=== PATIENT | female | born 1960 | race African-American/Black ===

== ENCOUNTER 2019-08-04 14:56 | Inpatient (IN) ==
[2019-08-04] MEDS ORDERED: ZOFRAN IV PRN (17:01)
[2019-08-04] MEDS ORDERED: TYLENOL PO PRN (17:01)
[2019-08-04 17:06] LABS: EOS% 2.8 % (0.0-10.0); MCV 84.8 FL (81-99)
[2019-08-04 17:23] LABS: INR 1.23; PROTIME 15.7 Seconds (11.0-16.0)
[2019-08-04 17:27] LABS: POTASSIUM 5.8 mmol/L (3.5-5.1)
[2019-08-04 17:28] LABS: ALBUMIN 3.6 g/dL (3.5-5.0); CALCIUM 9.3 mg/dL (8.8-10.2); CREATININE 2.7 mg/dL (0.5-0.9); PHOSPHORUS 4.2 mg/dL (2.7-4.5); TOTAL BILIRUBIN 0.28 mg/dL (0.20-1.00); TOTAL PROTEIN 7.2 g/dL (6.3-8.3)
--- NOTE | 2019-08-04 17:45 | Diag Imaging Result Doc PS360 ---
EXAM: CHEST-PORTABLE - 08/04/2019 HISTORY: sob TECHNIQUE: Portable chest COMPARISON: 10/26/2018 FINDINGS: There is stable mild cardiomegaly. The lungs appear clear. There is no pleural effusion or pneumothorax identified. IMPRESSION: Stable mild cardiomegaly. No other evidence of acute disease. Electronically signed by Jamison Fair 08/04/2019 5:43 PM
[2019-08-04 18:42] LABS: BASO# 0.03 X1000 (0.0-0.2); BASO% 0.5 % (0.0-0.8); EOS# 0.16 X1000 (0.0-0.7); HEMATOCRIT 32.3 % (37.0-47.0); HEMOGLOBIN 10.2 g/dL (12.0-16.0); LYMPH# 1.47 X1000 (1.2-3.4); LYMPH% 26.1 % (20.5-51.1); MCH 26.8 PG (27-31); MCHC 31.6 g/dL (33-37); MONO# 0.52 X1000 (0.11-0.59); MONO% 9.2 % (1.7-9.3); MPV 11.9 FL (7.4-10.4); NEUT# 3.45 X1000 (1.4-6.5); NEUT% 61.4 % (42.2-75.2); PLT 163 X1000 (130-400); RBC 3.81 XMIL (4.2-5.4); RDW 13.1 % (11.5-14.5); WBC 5.63 X1000 (4.8-10.8)
[2019-08-04 18:55] LABS: HEMOGLOBIN A1C 9.8 % (4.8-6.0)
[2019-08-04] MEDS ORDERED: KAYEXALATE PO ONE (19:15)
--- NOTE | 2019-08-04 19:30 | EKG Report ---
Test Performed on : 08/04/2019 6:45:17 PM Test Reason : baseline ekg on admit; ckd Blood Pressure : / mmHG Vent. Rate : 075 BPM Atrial Rate : 075 BPM P-R Int : 168 ms QRS Dur : 070 ms QT Int : 390 ms P-R-T Axes : 054 032 031 degrees QTc Int : 435 ms Normal sinus rhythm. Normal ECG When compared with ECG of 04-DEC-2018 19:44, No significant change was found Confirmed by Anabela MOORE, Andrew Santillan ([id number]) on 08/05/2019 8:22:22 AM
--- NOTE | 2019-08-04 20:22 | HISTORY AND PHYSICAL ---
PRIMARY CARE PROVIDER: Dr. Rodriguez. PRIMARY JIG GRINDER: Dr. Thompson. PRIMARY GENERAL SURGEON: For chronic lower extremity wounds is Dr. Chandrakant Garcia. CHIEF COMPLAINT: Actually, a direct admit secondary to worsening fluid volume overload and worsening renal failure. HISTORY OF PRESENT ILLNESS: Ms. Fannie Gonzalez is a 58-year-old, - Faroese female, with a medical history of insulin-dependent diabetes mellitus type 2, peripheral vascular disease, CKD stage 5, hypertension, neurogenic bladder with suprapubic catheter, heart failure, who is here after attempts of diuresing her by Dr. Thompson and team. She was on 80 of Lasix in the morning, 40 at night, along with every other day metolazone with continued increasing fluid weight gain along with uremia. She is going to be admitted for high-dose Lasix to see if she can be diuresed well enough. If unable to get diuresed well enough, she could possibly may need dialysis. Dr. Thompson will be following. PAST MEDICAL HISTORY: 1. Diabetes mellitus type 2 with insulin dependence, uncontrolled with a hemoglobin A1c of 9.8. 2. Peripheral vascular disease with frequent lower extremity wounds. 3. Chronic kidney disease stage 5. 4. Hypertension. 5. Neurogenic bladder with suprapubic catheter that gets changed every 30 days. 6. Congestive heart failure. 7. Hyperlipidemia. SURGICAL HISTORY: 1. Right 5th toe amputation 1 year ago, June 2018. 2. Rotator cuff repair. 3. Hysterectomy. 4. Skin graft in 2018, likely secondary to ulcerations of the leg, and that was on the right leg. 5. History of PICC line placement and removal. SOCIAL HISTORY: Denies tobacco, alcohol, or illicit drug use. She lives at home with her son. Uses a walker and cane to get around a little bit. Out of balance when she does walk. FAMILY HISTORY: Mother's side of the family with diabetes, [place]. Father's side of the family with prostate cancer, peripheral vascular disease, also [place]. ALLERGIES: Ciprofloxacin, propoxyphene napsylate, latex, tomato, egg, and milk. HOME MEDICATIONS: Not verified. REVIEW OF SYSTEMS: A 14-point review of systems are complete and all were negative, except for those mentioned above in HPI. PHYSICAL EXAMINATION: VITAL SIGNS: Temperature 98.9 degrees, heart rate 66, respiratory rate 20, blood pressure 149/69, O2 saturation 98% on room air. She is 5 feet 2 inches tall, 265 pounds, with a BMI 48.5, mostly all fluid, a lot of fluid. GENERAL: Ms. Fannie Gonzalez is a 58-year-old, -Faroese female. She is in no acute distress. She is able to answer questions appropriately. HEENT: Atraumatic, normocephalic. Pupils equal, round, reactive to light. Extraocular movements intact. Mucous membranes are moist. NECK: Trachea midline. CARDIOVASCULAR: S1, S2. Regular rate and rhythm. No rubs, gallops, murmurs. Trace lower extremity edema. Negative JVD or carotid bruits. PULMONARY: Clear to auscultation. Bilateral breath sounds. No accessory muscle use or work of breathing noted. GASTROINTESTINAL: Soft, nontender, nondistended. Positive bowel sounds x4. Suprapubic catheter in place. No signs or symptoms of infection. NEUROLOGIC: A O x3. Follows commands. Decreased sensory in the lower extremities. EXTREMITIES: Moves all extremities equally with generalized weakness. Decreased range of motion. Balance is off with walking. SKIN: She has multiple stages of healing in the lower extremities likely secondary to her peripheral vascular disease. She has had a history of skin grafting on the right. She has a bullous on the right maurice that has not opened. She has the right great toe, there is a little ulceration that looks like it is appearing. The skin is very taut and shiny. LABORATORY DATA: White blood cells 5000, hemoglobin 10, hematocrit 32, platelet count 163,000. INR is 1.23, PTT is 36.7. Sodium 136, potassium 5.8, BUN 75, creatinine is 2.7, glucose 183. Hemoglobin A1c is 9.8. Calcium 9.3, phosphorus 4.2, bilirubin 0.28, AST 12, ALT 9. ProBNP 507. Albumin is 3.6. IMAGING: Chest x-ray: Stable mild cardiomegaly. No acute disease. ASSESSMENT AND PLAN: 1. Chronic kidney disease stage 5 with hypervolemia, or fluid volume overload, along with uremia. She is here for high-dose diuretic therapy. She will be on Lasix 100 mg IV twice a day and Dr. Thompson will be following. Still pending some of her labs, but it looks like her creatinine has actually improved from 4.1 on the 07/24/2019, down to 2.7 on 08/04/2019, today. 2. Hyperkalemia. Will probably give a dose of Kayexalate and will check an EKG. 3. Uncontrolled diabetes mellitus type 2. Currently, blood glucose level is 183. She has a hemoglobin A1c of 9.8. Diabetic renal diet, sliding scale insulin, patterned blood glucoses. 4. Elevated alkaline phosphatase. It looks like we are going to do a hepatitis panel for that. 5. Chronic anemia. Stable. Hemoglobin is 10 and it looks like about 2 months ago it was 11. 6. Peripheral vascular disease. It looks like an ulcer may be starting to develop on the right great toe. There is a bullous area on the right maurice. She does see Dr. Chandrakant Garcia. We could consider reconsulting him if things worsen before she gets discharged. 7. History of neurogenic bladder with suprapubic catheter. Routine care on that. 8. Hypertension. Home medications, once they are verified, we can resume. 9. Deep venous thrombosis prophylaxis. Heparin 5000 units subcutaneously twice a day. Dictated by ABIGAIL Beckman for Timur Cole MD cc: ABIGAIL Beckman MD Hiteshri S. Bhavsar, MD Reginald D. Gladish, MD I agree with most components of history, physical, assessment and plan. A separate addendum has been dictated . [facility]
--- NOTE | 2019-08-04 20:24 | HISTORY AND PHYSICAL ---
ADDENDUM: I agree with most components of history, physical, assessment and plan. In brief, Ms. Gonzalez is a 58-year-old lady with past medical history of morbid obesity, neurogenic bladder status post suprapubic catheter, peripheral arterial disease, chronic kidney disease stage 4 to stage 5, who had routine lab draws done at sustainability manager's office where she was found to have a creatinine in excess of 4 so she was advised to come to the hospital. Apparently, patient has also been feeling more drowsy and confused recently than before. At the time of my evaluation, however, patient is eating her dinner. She denies any chest pain, shortness of breath. She states she has been gaining weight and has noticed significant edema of both lower extremities as well as abdomen. She also feels very sleepy and confused; however, past medical history is inconsistent. The patient's family is at bedside. She denies any chest pain or shortness of breath. VITAL SIGNS: She is afebrile. Temperature 98.9 degrees, pulse is 80, respiratory 20, blood pressure 150/70, saturating 98% on room air. PHYSICAL EXAMINATION: GENERAL: Morbidly obese, not in acute distress. HEENT: Oral cavity is moist. LUNGS: Air entry bilaterally equal. No wheeze, rhonchi, or crackles. CARDIOVASCULAR: S1, S2 normal. Systolic murmur best heard in left second intercostal space. No rub or gallop. ABDOMEN: Was obese, soft, nontender. Bilateral lower extremity edema extending up to thigh level. GENITOURINARY: She has a hypogastric region suprapubic catheter draining clear urine. The site appears clean. INTEGUMENTARY: She also has a right 5th toe amputation. Right great toe has an abrasion which is slightly bleeding, poor nail health. LABORATORY DATA: Suggestive of normocytic anemia, normal platelet count, hyperkalemia, chronic kidney disease stage 4. No blood cultures were collected. IMAGING: Chest x-ray has cardiomegaly without evidence of acute disease. ASSESSMENT AND PLAN: 1. Volume overload due to chronic kidney disease stage 4 and progression of it. 2. History of insulin-dependent diabetes mellitus. 3. History of neurogenic bladder status post suprapubic catheter. 4. History of peripheral artery disease, obstructive sleep apnea, hyperlipidemia. PLAN: Start patient on intravenous diuresis. Resume most of her home medications. Plan of care discussed with her. Her questions have been answered. cc: Timur Cole MD MTDD
[2019-08-04] MEDS ORDERED: PRAVACHOL PO SCH (21:00)
[2019-08-04 21:19] LABS: URINE SOURCE CATH
[2019-08-04 21:29] LABS: BILIRUBIN URINE NEGATIVE (NEGATIVE); BLOOD URINE MODERATE (NEGATIVE); COLOR STRAW; GLUCOSE URINE NEGATIVE (NEGATIVE); KETONE URINE NEGATIVE (NEGATIVE); LEUKOCYTES URINE LARGE (NEGATIVE); NITRITE URINE POSITIVE (NEGATIVE); PROTEIN URINE 100 mg/dL (NEGATIVE); SP GRAVITY URINE 1.013; TURBIDITY URINE HAZY (CLEAR); UROBILINOGEN URINE NORMAL (NORMAL)
[2019-08-04 21:30] LABS: UR EPITHELIAL CELLS <10 /HPF (<10); URINE BACTERIA 4+ /HPF; URINE RBC <10 /HPF (<10); URINE WBC TNTC /HPF (<10)
[2019-08-04] MEDS: HEPARIN SUBQ SCH (22:35)
[2019-08-04] MEDS: LASIX IV SCH (22:35)
[2019-08-04] MEDS: NEURONTIN PO SCH (22:36)
[2019-08-04] MEDS: HUMULIN R SUBQ SCH (22:47)
[2019-08-05] MEDS: HUMULIN R SUBQ SCH ×4 (06:08→21:14)
[2019-08-05 06:37] LABS: BASO# 0.02 X1000 (0.0-0.2); BASO% 0.3 % (0.0-0.8); EOS# 0.23 X1000 (0.0-0.7); HEMATOCRIT 33.1 % (37.0-47.0); HEMOGLOBIN 10.4 g/dL (12.0-16.0); LYMPH# 1.35 X1000 (1.2-3.4); LYMPH% 23.4 % (20.5-51.1); MCH 26.7 PG (27-31); MCHC 31.4 g/dL (33-37); MCV 85.1 FL (81-99); MONO# 0.58 X1000 (0.11-0.59); NEUT% 62.3 % (42.2-75.2); PLT 163 X1000 (130-400); RBC 3.89 XMIL (4.2-5.4); WBC 5.78 X1000 (4.8-10.8)
[2019-08-05 06:41] LABS: INR 1.18; PROTIME 15.1 Seconds (11.0-16.0)
[2019-08-05 06:42] LABS: PTT 28.2 Seconds (22.3-41.8)
[2019-08-05] MEDS ORDERED: PRILOSEC PO SCH (07:00)
[2019-08-05 07:08] LABS: ALB/GLOB RATIO 1.1; CALCIUM 8.8 mg/dL (8.8-10.2); CREATININE 3.1 mg/dL (0.5-0.9); MAGNESIUM 2.2 mg/dL (1.5-2.7); POTASSIUM 5.9 mmol/L (3.5-5.1); TOTAL BILIRUBIN 0.24 mg/dL (0.20-1.00); TOTAL PROTEIN 7.5 g/dL (6.3-8.3)
[2019-08-05] MEDS: ASPIRIN PO SCH (09:24)
[2019-08-05] MEDS: HEPARIN SUBQ SCH ×2 (09:24→21:13)
[2019-08-05] MEDS: LASIX IV SCH ×2 (09:24→21:13)
[2019-08-05] MEDS: NEURONTIN PO SCH ×3 (09:24→21:12)
[2019-08-05] MEDS: COZAAR PO SCH (09:24)
[2019-08-05] MEDS ORDERED: ATARAX PO ONE (10:01)
--- NOTE | 2019-08-05 12:07 | NEPHROLOGY CONSULTATION ---
DATE: 08/05/2019 REASON FOR ADMISSION: Uremia, worsening fluid volume. REASON FOR CONSULT: Uremia, worsening fluid volume. HISTORY OF PRESENT ILLNESS: This is a 58-year-old female known to our service for CKD 5, who was seen in the office. She had been having issues with fluid volume management and noted to have significant uremic symptoms. She was admitted for further workup and treatment in an effort to manage her fluid volume with high-dose Lasix. Anticipate the patient may require dialysis for management. Her creatinine in the office was greater than 4, however, in the hospital her creatinine on admission was 2.7. Today she is awake and alert. She continues to have morning sickness and some weakness along with swelling. PAST MEDICAL HISTORY: CKD 5. Diabetes. Peripheral vascular disease. Hypertension. Neurogenic bladder. Congestive heart failure. Hyperlipidemia. PATS SURGICAL HISTORY: Fifth toe amputation on the right. Rotator cuff repair. Hysterectomy. Skin graft in 2018. History of PICC line. ALLERGIES: Ciprofloxacin, propoxyphene napsylate, latex, tomato, egg, and milk. HOME MEDICATIONS: Please see chart for list. FAMILY HISTORY: Noncontributory. SOCIAL: No ETOH, tobacco or illicit drug use. REVIEW OF SYSTEMS: Pertinent positives noted above in the HPI. PHYSICAL EXAMINATION: Vital Signs: Temperature 98.1 degrees, pulse 83, respiratory rate 15, blood pressure 145/54. Intake 900 mL. Output 2.3 liters. General: This is a middle-aged woman who does not appear in distress. HEENT: Normocephalic, atraumatic. JACKIE. Neck: Supple. Positive JVD. Cardiovascular: Regular rate and rhythm with a gallop. Pulmonary: She is clear. Abdomen: Soft. Positive bowel sounds. : Indwelling Patel. Extremities: She is able to move all extremities. She has 1+ edema. Integumentary: Skin is warm and dry. Neurologic: Grossly intact. LAB DATA: Sodium is 139, potassium 5.9, CO2 23, BUN 73, creatinine 3.1. ASSESSMENT AND PLAN: 1. Fluid volume overload. 2. Hyperkalemia. We are in agreement with medical treatment of her hyperkalemia and the chronic kidney disease, stage 5, with uremia, hypovolemia. We will start with high- dose Lasix today and observe. The patient's creatinine today is significantly improved from her outpatient labs. 3. Electrolytes, acid-base balance. These are acceptable. 4. Anemia. Hemoglobin is in targeted range. Dictated by ABIGAIL Ordonez for Agapito Thompson MD Face to face encounter, data reviewed, discussed with Ashwin Sharma on 08/05/19. I agree with the above assessment and plan of care. cc: Agapito Thompson MD [facility]
[2019-08-05 13:06] LABS: HEPATITIS PROFILE ACUTE SEE COMMENTS
[2019-08-05] MEDS ORDERED: NEURONTIN PO ONE (15:07)
[2019-08-05] MEDS ORDERED: BENADRYL IV ONE (15:26)
[2019-08-05] MEDS ORDERED: HYDROCORTISONE 1% OINTMENT TOP ONE (19:09)
[2019-08-05] MEDS ORDERED: ZYRTEC PO ONE (19:09)
[2019-08-05] MEDS ORDERED: HUMULIN 70/30 SUBQ ONE (19:15)
--- NOTE | 2019-08-05 20:08 | PROGRESS NOTE ---
DATE: 08/05/2019 INTERVAL HISTORY: No acute events overnight. She had an episode of intense itching today and she required an additional dose of hydroxyzine as well as IV Benadryl. She is also complaining of some itching in the nose and mouth. She wanted me to call the surgeon doctor. She was also supposed to get echocardiogram, which has not been done outpatient yet. She denies any new complaints. We discussed about continuing the Lasix. I answered all of her questions. VITALS: Temperature 97.6 degrees, pulse 74, respiratory rate 18, blood pressure 150/60, saturating 97% room air. PHYSICAL EXAMINATION: Morbidly obese, not in any acute distress. Oral cavity is moist. Air entry bilaterally equal. No wheeze, rhonchi, or crackles. S1, S2 normal. Systolic murmur best heard in the left 2nd intercostal space.Abdomen: Obese, soft, nontender. Suprapubic catheter with some mucoid discharge in hypogastric region. She has right 5th toe amputation. Right great toe has abrasion with ulcer with poor nail health. She has ascites and bilateral lower extremity edema. LABORATORY: Suggestive of no leukocytosis. Normocytic anemia. Normal platelet count. She does have hyperkalemia, elevated BUN and creatinine, hyperglycemia. Alkaline phosphatase is elevated. MICROBIOLOGY: Urine culture is growing gram-negative rods. However, she does not have any symptoms. This could just be colonization, so it would not be treated. ASSESSMENT AND PLAN: 1. Volume overload due to chronic kidney disease stage 4 and now progression. I will continue intravenous Lasix and add home oral metolazone. Nephrology team is on board. I will follow up with potassium level to see if she needs to be treated. Meanwhile, I will also give her albuterol nebulization. 2. History of insulin-dependent diabetes mellitus with hyperglycemia. Resume her home insulin regimen. 3. History of neurogenic bladder, status post suprapubic catheter. I will not treat urine bacteria since she does not have WBC count and is not symptomatic. 4. History of peripheral artery disease, obstructive sleep apnea, and hyperlipidemia. I will continue her home medication of gabapentin. 5. Others. Continue pravastatin for hyperlipidemia with aspirin; heparin for DVT prophylaxis subcutaneously; hydroxyzine for allergies and itching; losartan and metoprolol for essential hypertension; omeprazole for gastroesophageal reflux disease. DISPOSITION: I will continue to monitor the patient inside the hospital. Plan of care discussed with her. All of questions have been answered. She does have hypervolemia requiring IV diuresis. cc: Timur Cole MD MTDD
[2019-08-05] MEDS: PRAVACHOL PO SCH (21:13)
[2019-08-05] MEDS: ATARAX PO SCH (21:13)
[2019-08-06 05:24] LABS: ALBUMIN 4.1 g/dL (3.5-5.0); CALCIUM 9.5 mg/dL (8.8-10.2); CREATININE 2.8 mg/dL (0.5-0.9); POTASSIUM 4.2 mmol/L (3.5-5.1)
[2019-08-06] MEDS: HUMULIN R SUBQ SCH ×4 (06:21→21:27)
[2019-08-06] MEDS: VITAMIN B-12 PO SCH (08:21)
[2019-08-06] MEDS: ASPIRIN PO SCH (08:21)
[2019-08-06] MEDS: NEURONTIN PO SCH ×3 (08:21→21:26)
[2019-08-06] MEDS: TOPROL XL PO SCH (08:21)
[2019-08-06] MEDS: PRILOSEC PO SCH (08:21)
[2019-08-06] MEDS: HEPARIN SUBQ SCH ×2 (08:21→21:26)
[2019-08-06] MEDS: LASIX IV SCH ×2 (08:21→21:27)
[2019-08-06] MEDS: COZAAR PO SCH (08:22)
[2019-08-06] MEDS: HUMULIN 70/30 SUBQ SCH (08:22)
--- NOTE | 2019-08-06 09:43 | PROGRESS NOTE ---
DATE: 08/06/2019 INTERVAL HISTORY: No acute events overnight. Her itching had stopped yesterday after increasing her gabapentin and hydroxyzine dose. She is denying new complaints. She did have a low oxygen saturation. VITALS: Temperature 98.3 degrees, pulse 77, respiratory rate 15, blood pressure 140/63, saturating anywhere between 88 to 100 percent on 2 L nasal cannula. PHYSICAL EXAMINATION: Morbidly obese. Not in any acute distress. Oral cavity is moist. Lungs: Air entry bilaterally equal. No wheeze or rhonchi. Inspiratory crackles, bilateral infrascapular region. Cardiovascular: S1, S2 normal. Systolic murmur best heard in second intercostal space. Abdomen: Obese, soft, nontender. Suprapubic catheter is in place. She has a right 5th toe amputation. Right great toe has abrasion with ulcer and poor nail health. She has ascites and bilateral lower extremity edema. She is alert and oriented x3. LABS: No CBC today. BMP suggestive of resolution of hyperkalemia. She does have persistently elevated BUN and creatinine. Blood sugars are within acceptable range. MICROBIOLOGY: Urine culture preliminary is growing gram-negative aleksandar. ASSESSMENT AND PLAN: 1. Volume overload due to chronic kidney disease stage 4 and now progression. Continue intravenous Lasix or oral metolazone. Nephrology team is on board. 2. History of insulin-dependent diabetes mellitus with hyperglycemia. Continue home insulin regimen. 3. Diabetic foot wound of right great toe: Pending surgical recommendations. 3. History of neurogenic bladder, status post suprapubic catheter which now is growing gram- negative bacteria. I will consult urology to see if her suprapubic catheter and gram-negative bacteria needs to be treated as necessary. 4. History of peripheral arterial disease, obstructive sleep apnea, and hyperlipidemia. Continue home gabapentin. She is on as needed oxygen at home, which I will continue. She has not been compliant with home CPAP. 5. Others. Continue pravastatin for hyperlipidemia with aspirin; heparin for deep venous thrombosis prophylaxis; hydroxyzine for allergies and itching; losartan and metoprolol for essential hypertension; omeprazole for chronic gastroesophageal reflux disease. 6. Disposition. Continue to monitor patient inside the hospital for need for intravenous diuresis. Plan of care discussed with her. All her questions have been answered. cc: MD LANA Pastor
--- NOTE | 2019-08-06 10:55 | Diag Imaging Result Doc PS360 ---
EXAM: CHEST-2 VIEWS 08/06/2019 HISTORY: cough, sob TECHNIQUE: PA and lateral chest COMMENT: There is cardiomegaly with left ventricular enlargement. The lungs are better expanded than they were on 08/04/2019. Otherwise are has been no significant change. IMPRESSION: Cardiomegaly. Electronically signed by Bran Briones 08/06/2019 10:51 AM
--- NOTE | 2019-08-06 11:59 | PROGRESS NOTE ---
DATE: 08/06/2019 INTERVAL HISTORY: Her itching had stopped yesterday, and she otherwise did okay. The chest x-ray did not detect any acute pathology. I will continue to monitor the patient inside the hospital. cc: Timur Cole MD
--- NOTE | 2019-08-06 12:08 | NEPHROLOGY PROGRESS NOTE ---
DATE: 08/06/2019 SUBJECTIVE: She states she did feel as well this morning. Some nausea. She complained of smothering at night. OBJECTIVE: Vital Signs: Blood pressure 144/61, heart rate 77, respirations 15, afebrile. General: No acute distress. Skin is warm and dry. Conjunctivae are pale. Oropharynx is moist. Neck: Neck veins are not visible. Heart: Regular but distant. Lungs: Equal. No crackles. Abdomen: Obese, soft, nontender. Bowel sounds present. Extremities: With 2+ edema. No clubbing or cyanosis. IMPRESSION: 1. Shortness of breath. She has been in negative fluid balance. Net negative approximately 5 L. We will continue her Lasix and check a chest x-ray again today. 2. Chronic kidney disease. Her creatinine has actually better than her baseline so I am not planning to start dialysis at this time. We will continue to re-evaluate that decision. 3. Electrolytes/acid base/anemia all in target. 4. Blood pressure in target. cc: Agapito Thompson MD
[2019-08-06] MEDS ORDERED: HUMULIN N SUBQ SCH ×2 (17:00→20:00)
[2019-08-06] MEDS ORDERED: ROCEPHIN 1 GM in NS 50 ML IV SCH (18:00)
[2019-08-06] MEDS: ATARAX PO SCH (21:26)
[2019-08-06] MEDS: PRAVACHOL PO SCH (21:26)
--- NOTE | 2019-08-06 21:33 | GENERAL SURGERY CONSULTATION ---
DATE: 08/06/2019 CONSULTING PHYSICIAN: Dr. Hawthorne, hospitalist. CHIEF COMPLAINT: Right foot wound. HISTORY OF PRESENT ILLNESS: This is a 58-year-old female known to me with chronic lower extremity wounds. She presented with worsening renal function, volume overload, and has been treated medically for this. She was noted to have a new ulceration of the right 1st toe. She has been afebrile. MEDICAL HISTORY: 1. Hypertension. 2. Chronic edema. 3. Congestive heart failure. 4. Chronic wounds. 5. Diabetes. 6. Chronic kidney disease. SOCIAL HISTORY: She does have a history of smoking; none current. SURGICAL HISTORY: No vascular procedures. FAMILY HISTORY: Reviewed and noncontributory. REVIEW OF SYSTEMS: A 10 point review of systems was reviewed and negative. PHYSICAL EXAMINATION: Vital Signs: She is afebrile, pulse 65, blood pressure 135/79. General: She is alert. HEENT: No scleral icterus or cervical mass. Cardiovascular: Normal rate. Pulmonary: She is on nasal cannula O2 with no increased work of breathing. Abdomen: Soft, nontender. Integument: Warm, dry. Psychiatric: Appropriate mood and affect. Neurologic: No gross deficits. Lymphatic: No cervical adenopathy. Peripheral Vascular: Chronic venous insufficiency changes to bilateral lower extremities, worse on the right. She has some superficial ulcerations of the right lateral calf and a superficial ulceration of the right 1st toe. Amputation of the right 5th toe is noted, well healed. LABS: Reviewed. Normal white count. Creatinine is 2.8. ASSESSMENT AND PLAN: 1. This is a 58-year-old female admitted with volume overload. She has chronic wounds. She has a relatively clean ulcer at the distal aspect of her 1st toe. It appears traumatic. I have seen this in my office as well and it has overall been stable. We will get an x-ray to rule out underlying osteomyelitis, and otherwise continue local wound care. 2. Diabetes, being managed by the hospitalist. 3. Chronic kidney disease, being managed by the hospitalist. cc: Scott Garcia MD
[2019-08-07] MEDS: HUMULIN R SUBQ SCH ×2 (06:03→15:39)
[2019-08-07] MEDS ORDERED: INSULIN PEN NEEDLES ONE (08:17)
[2019-08-07] MEDS ORDERED: ZAROXOLYN PO SCH (09:00)
[2019-08-07] MEDS: LASIX IV SCH (09:00)
[2019-08-07] MEDS: VITAMIN B-12 PO SCH (09:00)
[2019-08-07] MEDS: ASPIRIN PO SCH (09:00)
[2019-08-07] MEDS: HUMULIN 70/30 SUBQ SCH (09:01)
[2019-08-07] MEDS: NEURONTIN PO SCH ×2 (09:01→15:13)
[2019-08-07] MEDS: PRILOSEC PO SCH (09:01)
[2019-08-07] MEDS: TOPROL XL PO SCH (09:01)
[2019-08-07] MEDS: HEPARIN SUBQ SCH (09:01)
[2019-08-07] MEDS: COZAAR PO SCH (09:01)
[2019-08-07 09:13] LABS: ALBUMIN 4.3 g/dL (3.5-5.0); CALCIUM 9.1 mg/dL (8.8-10.2); CREATININE 3.3 mg/dL (0.5-0.9); PHOSPHORUS 4.9 mg/dL (2.7-4.5); POTASSIUM 3.8 mmol/L (3.5-5.1)
[2019-08-07 11:50] VITALS: BP 137/60
--- NOTE | 2019-08-07 13:12 | ECHO REPORT ---
ORDER DATE: 08/07/2019 INDICATIONS: Fluid overload. FINDINGS: 1. The right atrium appears normal in size. 2. Mild tricuspid regurgitation. RV systolic pressure of 28. 3. Normal RV size and systolic function. 4. No significant pulmonic insufficiency. 5. Mild left atrial enlargement with a dimension of 4.4 cm. 6. No mitral valve prolapse. Mild mitral regurgitation. No evidence of mitral stenosis. 7. Normal LV size, end-diastolic dimension of 4.1 cm. There is no clear evidence of left ventricular hypertrophy on this study. 8. Normal LV systolic function. Estimated EF of 55% to 60% percent with normal wall motion identified. This is a difficult 2 dimensional study given the patient is 5 foot 2 and weighs 252 pounds. 9. Aortic valve opens well. It is trileaflet. There is no evidence of stenosis or insufficiency. 10. Aorta appears normal on visualized segments. 11. There is no pericardial effusion identified. 12. Patient has E to A reversal suggesting a grade 1 diastolic dysfunction. cc: MD Timur Martin MD
[2019-08-07] MEDS ORDERED: ROCEPHIN 1 GM in NS 50 ML IV ONE (13:35)
--- NOTE | 2019-08-07 14:36 | CONSULTATION ---
DATE OF CONSULTATION: 08/07/2019 ATTENDING AND REFERRING PHYSICIAN: Hospitalist. CHIEF COMPLAINT: Kidney failure. HISTORY OF PRESENT ILLNESS: This 58-year-old female has a long history of poorly controlled diabetes. This has resulted in a neurogenic bladder. She had a suprapubic tube placed several years ago. She was previously on clean intermittent catheterization but states she got to where she could not do that. Her last bladder evaluation was in December 2018. At cystoscopic exam there were no abnormalities in the bladder. Her bilateral retrograde ureteral pyelograms were normal. Her suprapubic tube was in good position and easily changed. Her most recent suprapubic tube change was less than 2 weeks ago. The patient denies any bladder problems at this time. She states that over the last several weeks she has had increased sediment in the urine. PAST MEDICAL HISTORY: Severe diabetes, gastroesophageal reflux disease, hypertension, congestive heart failure, elevated cholesterol, peripheral vascular disease, with recurrent wounds. CURRENT MEDICATIONS: Documented on the chart. PAST SURGICAL HISTORY: 1. Cystoscopic exam with bilateral retrograde ureteral pyelograms as noted in the HPI. 2. Placement of a suprapubic tube. 3. Hysterectomy. 4. Multiple treatments of lower extremity wounds. 5. Right 5th toe amputation. 6. Rotator cuff repair. SOCIAL HISTORY: No tobacco use for several years. She denies alcohol use. She uses a walker to ambulate. ALLERGIES: She is allergic to Cipro, latex and different foods. PHYSICAL EXAMINATION: General: An obese, age apparent, normally developed, black female, oriented in all ways and cooperative. HEENT: Normal for age. Lungs: Clear, but distant breath sounds. Cardiovascular: Regular rate and rhythm. Abdomen: Obese with large pannus. Soft suprapubic tube in place draining somewhat clear urine. Genitourinary: Normal external female. Pelvic exam was not performed. Extremities: No cyanosis or clubbing. There was +2 edema of the lower extremities. She does have some wounds that are healing bilaterally, and some well healed scars. Neurologic: No focal deficits. LABORATORY EVALUATION: White count of 5.78, hemoglobin 10.4, hematocrit of 33.1 and platelets are 163,000. Serum electrolytes are normal. BUN 74, creatinine 2.8. Her fingerstick glucoses have never been in the normal range and have gone up from 125 to 330. Urine culture grew Serratia marcescens that is sensitive to all antibiotics except 1st generation cephalosporins and nitrofurantoin. She is currently on ceftriaxone. IMPRESSION and Recommendation: 1. Multiple medical problems with increased renal insufficiency and congestive heart failure. 2. Neurogenic bladder with indwelling suprapubic tube that is draining well. 3. The bacteria that is growing has probably colonized the bladder but would recommend continuing IV Rocephin for several more days. 4. 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 5. Change suprapubic tube as scheduled in 2 weeks. Thank you for this consultation. cc: Romero Calderon MD [facility]
--- NOTE | 2019-08-07 22:32 | NEPHROLOGY PROGRESS NOTE ---
DATE: 08/07/2019 SUBJECTIVE: Ms Gonzalez is sitting up reasonably comfortable, on room air. She still is having some difficulty with nausea. No vomiting. Shortness of breath is minimal. OBJECTIVE: Vital Signs: Blood pressure 137/60, heart rate 70, respirations 16, afebrile. Generally: No acute distress. Skin: Warm and dry. Neck: Neck veins are not distended. Heart: Regular. Lungs: Equal. Abdomen: Benign. Extremities: 2+ edema. No clubbing or cyanosis. IMPRESSION: 1. Chronic kidney disease stage 4 to 5. Creatinine is still better than it was as an outpatient. It is not clear to me whether her nausea is related to uremia. We will focus on symptom management and we will see her in the office and perform 24-hour urine. Further decision- making regarding renal replacement therapy at that time. cc: Agapito Thompson MD
[2019-08-08] MEDS ORDERED: LEVAQUIN PO SCH (09:00)
--- NOTE | 2019-08-08 11:05 | DISCHARGE SUMMARY ---
ADMISSION DATE: 08/04/2019 DISCHARGE DATE: 08/07/2019 DISCHARGE DISPOSITION: Home with family. DISCHARGE CONDITION: Hemodynamically stable. Alert, oriented. Breathing well on room air and negative 6.3 liters since admission. DISCHARGE DIAGNOSES: 1. Volume overload due to chronic kidney disease stage IV and its progression. 2. Intermittent episodes of drowsiness, confusion due to a combination of sleep apnea, use of high dose of gabapentin, and uremia. 3. Insulin-dependent diabetes mellitus type 2 with hyperglycemia. 4. Diabetic foot wound of right great toe. 5. Serratia urinary tract infection complicated, associated with suprapubic catheter. 6. Hyperkalemia OTHER DIAGNOSES: 1. History of morbid obesity. 2. History of insulin-dependent diabetes mellitus type 2. 3. History of neurogenic bladder, status post suprapubic catheter. 4. History of peripheral artery disease. 5. History of obstructive sleep apnea, not compliant with CPAP. 6. Hyperlipidemia. 7. Chronic pain. 8. Essential hypertension. 9. Chronic gastroesophageal reflux disease. DISCHARGE MEDICATIONS: Pravastatin 40 mg at nighttime, hydroxyzine 50 mg at nighttime, vitamin B 12 500 mcg daily, losartan 100 mg daily, furosemide 40 mg t.i.d., insulin 70/30 120 units in the morning time and 110 units in the evening time, metoprolol (Lopressor) 200 mg daily, metolazone 5 mg every other day, omeprazole 40 mg daily, aspirin 325 mg daily, levofloxacin 750 mg every 48 hours 4 tablets have been prescribed for complicated UTI associated with suprapubic catheter by Prieto, gabapentin 300 mg t.i.d.; her dose was decreased from 600 mg t.i.d. CONSULTATIONS DURING HOSPITAL ADMISSION: 1. Nephrology, Dr. Thompson. 2. General Surgery, Dr. Garcia. VITALS: At the time of discharge, temperature 97.4 degrees, pulse 70, respiratory rate 16, blood pressure 137/60, saturating 93% on room air. PHYSICAL EXAMINATION: General: Morbidly obese, not in acute distress. Oral cavity: Moist. Lungs: Air entry bilaterally equal. No wheeze, rhonchi, crackles. Heart: S1, S2 normal. No murmur, rub, or gallop. Abdomen: Soft, nontender, morbidly obese. Extremities: She has bilateral lower extremity edema. She has a right 5th toe amputation, for which local wound is recommended. SIGNIFICANT IMAGING DURING HOSPITAL ADMISSION: Chest x-ray on the 04 of August had stable mild cardiomegaly without any evidence of acute disease. Chest x-ray on the 06 of August had cardiomegaly. HOSPITAL COURSE SUMMARY: Ms. Gonzalez is a 58-year-old lady with past medical history of diabetic nephropathy and chronic kidney disease stage IV, who had seen Dr. Thompson in his office where she was found to be becoming drowsy, confused. It was thought to be related to uremia, so she was advised to come to the hospital. Also, her outpatient creatinine was found to be more than 4. However, when she came to the hospital, her repeat creatinine performed on admission was 2.7. In any case, she had significant volume overload, so she was admitted for intravenous diuresis. She was started on furosemide 40 mg IV every 12 hours, following which she started diuresing better. It was also thought that her sleepiness was a combination of sleep apnea, not being compliant with CPAP, high dose of gabapentin and had oxygen use. In any case, with IV diuresis her clinical condition improved. Urine culture from the suprapubic catheter was growing Serratia marcescens which was sensitive to levofloxacin. At the time of discharge, she was given a prescription of levofloxacin. Her Lasix dose was increased to 60 mg t.i.d. at the time of her discharge. She was advised to follow up with outpatient provider and discuss about further management and decreasing her pain medication dose. TIME SPENT: More than 30 minutes were spent in discharging this patient. All of her questions at the time of discharge were answered. Surgical team was also consulted for the right great toe, who recommended local wound care. Although an x-ray was recommended, it was not ordered, so I advised the patient to get an outpatient x-ray. cc: MD LANA Pastor
== END 2019-08-07 15:41 | disposition home health service (06) | DRG 641 ==
LOC: DIRADM 14:56 → SUATTDRO 14:56 → EDIPHOLD 15:09 → 1N 21:57
PROVIDERS: ATTEND Internal Medicine

== ENCOUNTER 2020-02-22 16:25 | Inpatient (IN) ==
--- NOTE | 2020-02-22 17:10 | PROVIDER DOCUMENTATION ---
HPI-General Adult - General Chief Complaint: Weakness Stated Complaint: weakness Time Seen by Provider: 02/22/20 16:31 Source: patient Allergies/Adverse Reactions: Patient Allergies Allergy/AdvReac Type Severity Reaction Status Date / Time ciprofloxacin [From Cipro] Allergy Severe Unknown Verified 10/30/19 11:06 ciprofloxacin HCl * Allergy Severe Unknown Verified 10/30/19 11:06 [From Cipro] propoxyphene napsylate * Allergy Severe Unknown Verified 10/30/19 11:06 [From Darvocet-N 100] latex Allergy Intermediate RASH Verified 10/30/19 11:06 tomato Allergy Intermediate RASH Verified 10/30/19 11:06 acetaminophen Allergy Unknown Unverified 02/22/20 16:25 [From Darvocet-N 100] egg Allergy ITCHING Verified 10/30/19 11:06 hydromorphone [From Dilaudid] Allergy Unknown Unverified 02/22/20 16:25 milk Allergy ITCHING Verified 10/30/19 11:06 propoxyphene Allergy Unknown Unverified 02/22/20 16:25 [From Darvocet-N 100] Home Medications: Home Medication List Medication Instructions Recorded Confirmed Last Taken Type Omeprazole [Prilosec] 40 mg PO DAILY 12/10/13 10/30/19 10/29/19 09:00 History 40 mg Losartan [Cozaar] 100 mg PO DAILY 10/27/15 10/30/19 10/29/19 09:00 History 100 mg PRAVAstatin [Pravachol] 40 mg PO QHS 10/27/15 10/30/19 10/29/19 20:00 History 40 mg Aspirin 325 mg PO DAILY tablet 12/13/17 10/30/19 10/29/19 10:00 Rx 325 mg Insulin Humulin 70/30 [Humulin 114 unit SUBQ QPM@1700 12/25/17 10/30/19 10/29/19 17:00 History 70/30] 114 Cyanocobalamin (Vitamin B-12) 500 mcg PO DAILY 10/27/18 10/30/19 10/29/19 09:00 History [B-12] 500 Hydroxyzine [Atarax] 50 mg PO HS 10/27/18 10/30/19 10/29/19 20:00 History 50 Insulin Humulin 70/30 [Humulin 134 unit SUBQ DAILY@0800 12/31/18 10/30/19 10/29/19 09:00 History 70/30] 134 Metoprolol [Lopressor] 200 mg PO DAILY 12/31/18 10/30/19 10/30/19 08:00 History 200 Gabapentin [Neurontin] 300 mg PO TID #0 cap 08/07/19 10/30/19 10/29/19 20:00 Rx 600 mg Furosemide 40 mg PO BID 10/27/19 10/30/19 10/29/19 09:00 History 40 Docusate Sodium [Colace] 100 mg PO BID #30 cap 10/30/19 Unknown Rx Hydrocodone/Acetaminophen [Belk 1 ea PO Q6H PRN PRN #20 tab 10/30/19 Unknown Rx 7.5-325 Tablet] - History of Present Illness -Gen Adult Nature of Presenting Problems: 59 YOF with ESRD on PD, HTN, DM presents with c/o generalized weakness, nausea, single episode of vomiting, poor PO intake, abdominal discomfort x 2 days. Reports decrease UOP from suprapubic cath. Denies fever, chills, sob, CP, Diarrea. Location of Pain/Injury: reports: abdomen Pain Radiation: reports: no radiation Quality of Pain: reports: aching Severity: reports: moderate Onset/Duration: reports: 2 days ago Timing: reports: still present Context/Activities at Onset: reports: none Modifying Factors: improves with: nothing Associated Symptoms: reports: nausea, vomiting, weakness. denies: diarrhea Similar Symptoms Previously?: No Recently seen or treated by another doctor?: No Review of Systems - Adult - REVIEW OF SYSTEMS - ADULT Constitutional: reports: no symptoms reported. denies: see HPI, chills, fever, fatique, night sweats, weight gain, weight loss, other Eyes: reports: no symptoms reported. denies: decreased vision, blurred vision, double vision Ears, Nose, Mouth & Throat: reports: no symptoms reported Cardiovascular: reports: no symptoms reported. denies: see HPI, chest pain, edema, heart murmur, irregular heart rate, orthopnea, palpitations, poor circulation, PND, syncope, other Respiratory: reports: cough. denies: no symptoms reported, see HPI, chronic cough, dyspnea on exertion, excessive sputum production, hemoptysis, pleurisy, shortness of breath, wheezing, other Gastrointestinal: reports: abdominal pain, nausea, poor appetite, vomiting. denies: no symptoms reported, see HPI, hematemesis, constipation, diarrhea, difficulty swallowing, frequent heartburn, rectal bleeding, other Genitourinary: reports: no symptoms reported. denies: see HPI, dysuria, discharge, frequency, flank pain, frequent UTI's, hematuria, hesitency, incontinence, urinary retention, urgency, other Musculoskeletal: reports: muscle weakness. denies: no symptoms reported, see HPI, bone pain, back pain, frequent leg cramps, joint pain, joint swelling, muscle aches, neck pain, other Integumentary: reports: no symptoms reported. denies: see HPI, hives, hair loss, itching, mole changes, nail changes, rash, skin sores/ulcer, skin thickening, other Neurological: reports: no symptoms reported. denies: see HPI, ataxia, dizziness/vertigo, headache/migraines, loss of balance, numbness, paresthesia, seizure, slurred speech, syncope, tremors, other Psychiatric: reports: no symptoms reported. denies: see HPI, anxiety, anti- depressant use, alcohol/drug dependence, depression, emotional problems, insomnia, panic attacks, suicidal thoughts, other Endocrine: reports: no symptoms reported. denies: see HPI, change in skin pigment, excessive sweating, goiter, cold intolerance, heat intolerance, increased hunger, increased thirst, polyuria, other Hematologic/Lymphatic: reports: no symptoms reported. denies: see HPI, blood clots, easy bruising, low blood count, lymphedema, prolonged bleeding, swollen lymph nodes, transfusions, other Allergic/Immunologic: reports: no symptoms reported. denies: see HPI, allergic reactions, allergic rhinitis, asthma, eczema, food allergy, frequent infections, hay fever, hives, positive PPD, urticaria, other Past History - Adult - PAST MEDICAL HISTORY-ADULT Review of Records: reports: Nursing Assessment Review, Social history reviewed & non-contributory. Major Childhood Illnesses: reports: denies history Cardiovascular: reports: CHF, HTN Respiratory: reports: COPD, sleep apnea Gastrointestinal: reports: GERD Obstetrical/Gynecological: reports: denies history Genitourinary: reports: kidney disease (ESRD; sp tube) Musculoskeletal: reports: denies history Neurological: reports: CVA, TIA Endocrine/Immune: reports: Diabetes Other Conditions: reports: denies history - PRIOR SURGERIES/PROCEDURES Surgical/Procedure History: reports: hysterectomy, indwelling device (sp cath), orthopedic (extremity) (aputation of R 5th digit) - PRIOR HOSPITALIZATIONS Prior Hospitalizations: reports: for other non-related - IMMUNIZATION STATUS Childhood Immunizations: See Nurse Assessment Flu Vaccine: See Nurse Assessment - FAMILY HISTORY Family History: reviewed, not pertinent Physical Exam-General - PHYSICAL EXAM-ADULT Initial Vital Signs Reviewed: Yes - CONSTITUTIONAL General Appearance: alert, no apparent distress - EYES Eyes: PERRL/EOMI, pink conjunctivae - HEAD, EARS, NOSE, MOUTH & THROAT HENMT: normocephalic/atraumatic, normal ENT inspection. negative: moist mucous membranes - NECK Neck: non-tender, full range of motion, supple - RESPIRATORY Respiratory: chest non-tender, lungs clear, normal breath sounds, no pleuratic chest pain, no respiratory distress, no accessory muscle use - CARDIOVASCULAR Cardiovascular: normal peripheral pulses, regular rate, rhythm, no gallop, no JVD, no murmur - GASTROINTESTINAL (ABDOMEN) Abdominal Exam: normal bowel sounds, soft, tenderness, other (PD cath in the LLQ) - LYMPHATIC Lymphatic: no adenopathy - MUSCULOSKELETAL Back Exam: normal inspection, no CVA tenderness, no vertebral tenderness Extremity: normal range of motion, non-tender Peripheral Pulses: radial (R): 2+, radial (L): 2+ - SKIN Integumentary: normal color, normal turgor, warm/dry - NEUROLOGIC Neurologic: grossly normal. negative: abnormal gait, facial droop, focal weakness, sensory deficit - PSYCHIATRIC Psych/Mental Status: normal mood/affect, oriented x 3 Progress - PLAN OF CARE/RESULTS Progress/Plan/Lab Results: Vital Signs - 8 hr 02/22/20 16:19 Temperature 98.4 F Pulse Rate 65 Respiratory Rate 18 Blood Pressure 106/60 O2 Sat by Pulse Oximetry 96 Orders Category Date Time Status FSBS [Finger Stick Blood Sugar (ED)] DIRECTED Care 02/22/20 16:42 Active Saline Loc NOW Care 02/22/20 16:[address] ABDOMEN/PELVIS W/O CONTRAST [CT] Stat Exams 02/22/20 16:44 Ordered cxr [CHEST-PORTABLE] [RAD] Stat Exams 02/22/20 16:43 Ordered ABG [RESP] Routine Lab 02/22/20 16:44 Ordered CBC WITH ELECTRONIC DIFF [HEME] Stat Lab 02/22/20 16:32 Uncollected COMPREHENSIVE METABOLIC PANEL [CHEM] Stat Lab 02/22/20 16:32 Uncollected Flu [INFLUENZA SCREEN PL] Stat Lab 02/22/20 16:43 Uncollected LIPASE [CHEM] Stat Lab 02/22/20 16:42 Uncollected UA NIMS W/REFLEX CULT [URINALYSIS] Stat Lab 02/22/20 16:42 Uncollected 1700: spoke with son escobar regarding initial POC, denies missing treatments, reports fluid is draining as expected Result Diagrams: 02/22/20 17:17 02/22/20 17:17 - CT/MRI 1 CT Study: Abdomen, Pelvis Impression: See EMR Report (EXAM: CT ABDOMEN/PELVIS W/O CONTRAST HISTORY: Abdominal pain TECHNIQUE: CT abdomen and pelvis without oral or intravenous contrast COMPARISON: 12/12/2010 FINDINGS: The upper liver is not included on the exam. There is a bosnb-vl-egvotlop amount of fluid in the abdomen and pelvis. No focal hepatic abnormality identified on this noncontrasted exam. The spleen is not enlarged. No calcified gallstones or adjacent inflammation. No inflammation about the pancreas. Normal adrenal glands. No renal stones. There is a 2.2 cm left renal cyst. No hydronephrosis. No aortic aneurysm. No bowel obstruction. No inflammation about the cecum. There is a Patel catheter in urinary bladder. The bladder is not distended. The uterus has been removed. There are multiple pelvic phleboliths. IMPRESSION: 1.Small to moderate amount of abdominal and pelvic fluid 2.Hysterectomy 3.There is a 2.2 cm left renal cyst. This exam was performed using automated exposure control, adjustment of mA or kV according to patient size, and/or use of iterative reconstruction technique. Electronically signed by Daryl Means 02/22/2020 6:21 PM 02/22/201820 Interpreting Physician: Daryl Means MD Dictated Date/Time: 02/22/201817 cc: Blanka Anderson; None,PCP) - CONSULTS/PCP/HOSPITALIST Notification #1 *Consult/PCP/Hospitalist*: Dr Thompson, paged at 1900 Time Discussed: 19:06 Consult Disposition: Admit (needs PD fluid same BLADE, he recommend sending the patient ER to ER to [facility]. Hospitalist paged at this time.) #2 Consult: Dr. oliveira Time Discussed: 19:10 Consult Disposition: Admit #3 Consult: Dr. Dixon Time Discussed: 19:11 Consult Disposition: Admit (ok to ER to ER) Departure - Departure Date of Disposition Decision: 02/22/20 Time of Disposition Decision: 19:15 DIAGNOSIS: ESRD (end stage renal disease), UTI (urinary tract infection), Abdominal pain, Complication of peritoneal dialysis, Nausea, Weakness Disposition: ADMITTED INPATIENT 09 Certified Medical Emergency: Emergent Condition: Stable Referrals and Follow-Ups: None,PCP [Primary Care Provider] - - Critical Care Note This patient required my direct & personal management of CC.: No Attestation - Physician/ SAVITA Attestation Patient care was provided by Advanced Practice Provider:: Yes Advanced Practice Provider:: Blanka Anedrson Advanced Practice Provider documentation review:: The Mid-level provider documentation, treatment plan and medical decision making was reviewed by the physician who agrees with all treatment and medical decision making by the MLP. The physician spent face to face time with patient:: No Advanced Practice Provider documentation review:: Supervising physician onsite and consulted in the evaluation and care of this patient. The physician did not have a face to face encounter with the patient.
[2020-02-22 17:30] LABS: BASO# 0.04 X1000 (0.0-0.2); BASO% 0.4 % (0.0-0.8); EOS# 0.15 X1000 (0.0-0.7); EOS% 1.3 % (0.0-10.0); HEMATOCRIT 31.5 % (37.0-47.0); HEMOGLOBIN 9.4 g/dL (12.0-16.0); IMM GRAN% 0.9 % (0.0-0.5); LYMPH% 12.3 % (20.5-51.1); MCH 25.8 PG (27-31); MCHC 29.8 g/dL (33-37); MCV 86.5 FL (81-99); MONO# 1.23 X1000 (0.11-0.59); MONO% 10.8 % (1.7-9.3); MPV 10.1 FL (7.4-10.4); NEUT# 8.48 X1000 (1.4-6.5); NEUT% 74.3 % (42.2-75.2); PLT 323 X1000 (130-400); RBC 3.64 XMIL (4.2-5.4); RDW 13.1 % (11.5-14.5)
[2020-02-22] MEDS ORDERED: NS 250 ML IV ONE (17:32)
[2020-02-22 17:39] LABS: BE 1.5 mmoll (-3.0-3.0); BLOOD TYPE ARTERIAL; O2(CT) 12.6 mL/dL (15.0-23.0); O2HB 93.1 % (95.0-99.0); PCO2(98.6) 47 mmHg (35-45); PO2(98.6) 92 mmHg (60-100); SAMPLE BLOOD; SAO2 93.1 % (95.0-100.0); THB 9.5 g/dL (11.5-17.4); pH(98.6) 7.37 (7.35-7.45)
[2020-02-22 17:45] LABS: ALLEN TEST YES; MODALITY CANNULA
[2020-02-22 17:59] LABS: INFLUENZA A NEGATIVE (NEGATIVE); INFLUENZA B NEGATIVE (NEGATIVE)
[2020-02-22 18:05] LABS: CALCIUM 8.9 mg/dL (8.8-10.2); POTASSIUM 4.3 mmol/L (3.5-5.1); TOTAL BILIRUBIN 0.3 mg/dL (0.20-1.00); TOTAL PROTEIN 8.9 g/dL (6.3-8.3)
[2020-02-22 18:06] LABS: CREATININE 12.6 mg/dL (0.5-0.9)
--- NOTE | 2020-02-22 18:23 | Diag Imaging Result Doc PS360 ---
EXAM: CT ABDOMEN/PELVIS W/O CONTRAST HISTORY: Abdominal pain TECHNIQUE: CT abdomen and pelvis without oral or intravenous contrast COMPARISON: 12/12/2010 FINDINGS: The upper liver is not included on the exam. There is a mwvrw-ic-fbenspjk amount of fluid in the abdomen and pelvis. No focal hepatic abnormality identified on this noncontrasted exam. The spleen is not enlarged. No calcified gallstones or adjacent inflammation. No inflammation about the pancreas. Normal adrenal glands. No renal stones. There is a 2.2 cm left renal cyst. No hydronephrosis. No aortic aneurysm. No bowel obstruction. No inflammation about the cecum. There is a Patel catheter in urinary bladder. The bladder is not distended. The uterus has been removed. There are multiple pelvic phleboliths. IMPRESSION: 1.Small to moderate amount of abdominal and pelvic fluid 2.Hysterectomy 3.There is a 2.2 cm left renal cyst. This exam was performed using automated exposure control, adjustment of mA or kV according to patient size, and/or use of iterative reconstruction technique. Electronically signed by Daryl Means 02/22/2020 6:21 PM
[2020-02-22 18:46] LABS: URINE SOURCE CATH
[2020-02-22 18:49] LABS: BILIRUBIN URINE NEGATIVE (NEGATIVE); BLOOD URINE LARGE (NEGATIVE); COLOR ORANGE; GLUCOSE URINE NEGATIVE (NEGATIVE); KETONE URINE NEGATIVE (NEGATIVE); LEUKOCYTES URINE LARGE (NEGATIVE); NITRITE URINE NEGATIVE (NEGATIVE); PH URINE 5.5; PROTEIN URINE 300 mg/dL (NEGATIVE); SP GRAVITY URINE 1.025; TURBIDITY URINE TURBID (CLEAR); UR EPITHELIAL CELLS >10 /HPF (<10); URINE BACTERIA 2+ /HPF; URINE RBC TNTC /HPF (<10); URINE WBC TNTC /HPF (<10); UROBILINOGEN URINE NORMAL (NORMAL)
[2020-02-22] MEDS ORDERED: XYLOCAINE-MPF 1% INJ ONE (18:52)
[2020-02-22] MEDS ORDERED: ROCEPHIN IM ONE (18:52)
[2020-02-22 19:05] LABS: URINE CASTS NONE SEEN; URINE CRYSTALS NONE SEEN; URINE YEAST PRESENT
--- NOTE | 2020-02-22 19:49 | Diag Imaging Result Doc PS360 ---
EXAM: CHEST-PORTABLE HISTORY: cough, low sats TECHNIQUE: Single view COMPARISON: 08/06/2019 FINDINGS: Poor inspiratory effort. The heart is mildly prominent. The vessels are not distended. Questionable increased markings in the left base behind the heart. No effusion identified. IMPRESSION: Questionable small left basilar infiltrate. Electronically signed by Daryl Means 02/22/2020 7:47 PM
[2020-02-22] MEDS ORDERED: VANCOMYCIN 1 GM/NS 1 GM/250 ML IVPB IV ONE (21:06)
[2020-02-22 22:12] LABS: BODY FLUID SOURCE PERI DIAL FLUID; WBC BF 55 /cumm
[2020-02-22] MEDS: PRAVACHOL PO SCH (22:26)
[2020-02-22] MEDS: NEURONTIN PO SCH (22:26)
[2020-02-22 22:28] LABS: MONOS 73 %; POLYS 27 %
[2020-02-23] MEDS: NORCO-10 PO PRN ×2 (01:54→21:05)
[2020-02-23] MEDS: ROCEPHIN 1 GM in NS 50 ML IV SCH (03:04)
[2020-02-23] MEDS ORDERED: DUONEB (A & A) INH PRN (05:27)
--- NOTE | 2020-02-23 05:53 | HISTORY AND PHYSICAL ---
CHIEF COMPLAINT: Nausea with poor oral intake. HISTORY OF PRESENT ILLNESS: Ms. Fannie Gonzalez is a 59-year-old female who has a history of multiple medical conditions including congestive heart failure, end-stage renal disease, CVA, gastroesophageal reflux disease, COPD, sleep apnea, hypertension, obesity, and suprapubic catheter. She presents to the hospital because of nausea, which has been ongoing for at least 3 days. She denies any vomiting. The patient also describes having abdominal pain mainly in the area around peritoneal dialysis catheter. No diarrhea, but has constipation. Oral intake has been poor, and she has become very fatigued. The patient initially presented to the [facility] emergency department before being transferred here to [facility] for further management. PAST MEDICAL HISTORY: 1. End-stage renal disease on peritoneal dialysis. 2. Diabetes mellitus. 3. Suprapubic catheter. 4. Hypertension. 5. CHF. 6. Obesity 7. Gastroesophageal reflux disease. 8. COPD. 9. Sleep apnea. SOCIAL HISTORY: No history of cigarette smoking, no alcohol, or drug use. FAMILY HISTORY: Positive for hypertension as well as diabetes. ALLERGIES: Patient is allergic to Cipro, Darvocet, latex, tomato, and hydromorphone. PAST SURGICAL HISTORY: She has had peritoneal dialysis catheter placement. Partial hysterectomy. Eye surgery. MEDICATIONS: Include the followin. Omeprazole 40 mg p.o. daily. 2. Losartan 100 mg p.o. daily. 3. Pravastatin 40 mg p.o. at bedtime. 4. Aspirin 325 g p.o. once a day. 5. Humulin 70/30 as corrected. 6. Cyanocobalamin 500 mcg p.o. daily. 7. Atarax 50 mg p.o. at bedtime. 8. Metoprolol 200 mg p.o. daily. 9. Gabapentin 300 mg p.o. 3 times a day. 10. Lasix 40 mg p.o. twice a day. 11. Colace 100 mg p.o. twice a day. 12. Hydrocodone/acetaminophen 7.5/325 q.6 hours p.r.n. REVIEW OF SYSTEMS: Constitutional: No fever. HOSPITAL CARRIER: No headaches. Eyes: The patient is legally blind. Cardiovascular: No chest pain. Respiratory: The patient has cough. : Decreased urine output. Musculoskeletal: She has joint pains. Dermatology: No skin lesions. Hematology: No bleeding problems. Endocrine/Allergies: She has diabetes but no thyroid disease. Psychiatric: No anxiety or depression. Allergies/Hematology: No symptoms suggestive of allergic rhinitis. PHYSICAL EXAMINATION: VITAL SIGNS: Temperature 97.5 degrees, pulse 60, respirations 18, blood pressure 84/60, and oxygen saturation is 100%. HEENT: She is atraumatic, normocephalic. She is anicteric. Extraocular movements intact. She has dry oral mucosa. NECK: No lymphadenopathy or thyromegaly. CARDIOVASCULAR: S1, S2. RESPIRATORY: She has evidence of good air entry bilaterally. No rales or rhonchi noted. ABDOMEN: Obese and nontender. No masses felt. EXTREMITIES: No evidence of significant edema. CENTRAL NERVOUS SYSTEM: No obvious focal deficit noted. LABORATORIES: WBC 11.4, hematocrit 31.5 with a platelet count of 323,000. ABG 7.37/47/92/93.1 percent. Sodium 135, potassium 4.3, chloride 85, bicarb 25, BUN 36, and creatinine is 12.6. UA shows large amount of leukocytes with numerous WBCs. Influenza A and B negative. CT scan abdomen and pelvis shows small to moderate amount of abdominal as well as pelvic hysterectomy as well as 2.2 cm left renal cyst. X-ray of the chest shows questionable small left basilar infiltrate. ASSESSMENT AND PLAN: 1. Probable peritoneal dialysis related peritonitis. Follow up on her ascitic fluid analysis as well as culture. Maintain patient on empiric antibiotics. The patient did receive vancomycin as well as Rocephin in the ER. 2. Urinary tract infection/history of suprapubic catheter placement. Follow up on urine cultures. Maintain patient on empiric antibiotics. 3. Probable pneumonia. Obtain sputum and blood cultures. Maintain patient on antibiotics. Follow up on patient clinically. 4. Congestive heart failure. Stable. 5. End-stage renal disease. Consult with Nephrology for hemodialysis. 6. History of CVA. Maintain patient on aspirin as well as statin. Recommend PT. 7. COPD nebulized bronchodilators as needed. 8. Diabetes mellitus. Monitor blood sugar levels. Maintain patient on sliding scale insulin. Check hemoglobin A1c. 9. Hypertension. Optimize her blood pressure control. 10. Obstructive sleep apnea. Patient may use CPAP machine as she does have one from home. 11. Deep vein thrombosis prophylaxis. SCD. 12. Gastrointestinal prophylaxis. Proton pump inhibitor. cc: Zeferino Moon MD
[2020-02-23] MEDS: PRILOSEC PO SCH (06:03)
[2020-02-23] MEDS: DUONEB (A & A) INH SCH ×4 (07:36→19:05)
[2020-02-23] MEDS: ASPIRIN PO SCH (08:22)
[2020-02-23] MEDS: ZITHROMAX PO SCH (08:23)
[2020-02-23] MEDS: NEURONTIN PO SCH ×3 (08:23→21:05)
[2020-02-23] MEDS: COLACE PO SCH ×2 (08:23→21:05)
[2020-02-23] MEDS: VITAMIN B-12 PO SCH (08:23)
[2020-02-23] MEDS: COZAAR PO SCH (08:26)
[2020-02-23] MEDS: TOPROL XL PO SCH (08:26)
[2020-02-23 08:37] LABS: BASO# 0.05 X1000 (0.0-0.2); BASO% 0.4 % (0.0-0.8); EOS# 0.24 X1000 (0.0-0.7); HEMATOCRIT 31.5 % (37.0-47.0); HEMOGLOBIN 9.3 g/dL (12.0-16.0); IMM GRAN% 0.8 % (0.0-0.5); LYMPH# 1.68 X1000 (1.2-3.4); MCH 25.5 PG (27-31); MCHC 29.5 g/dL (33-37); MCV 86.3 FL (81-99); MONO% 7.5 % (1.7-9.3); MPV 10.1 FL (7.4-10.4); NEUT# 9.01 X1000 (1.4-6.5); NEUT% 75.3 % (42.2-75.2); PLT 356 X1000 (130-400); RBC 3.65 XMIL (4.2-5.4); RDW 13.3 % (11.5-14.5); WBC 11.98 X1000 (4.8-10.8)
[2020-02-23] MEDS ORDERED: NEURONTIN PO SCH (09:00)
[2020-02-23] MEDS ORDERED: LASIX PO SCH (09:00)
--- NOTE | 2020-02-23 09:01 | EKG Report ---
Test Performed on : 02/22/2020 7:48:02 PM Test Reason : ER Blood Pressure : / mmHG Vent. Rate : 063 BPM Atrial Rate : 063 BPM P-R Int : 182 ms QRS Dur : 080 ms QT Int : 436 ms P-R-T Axes : 033 021 030 degrees QTc Int : 446 ms Sinus rhythm. with premature ventricular complexes. or fusion complexes Low voltage QRS T wave abnormality, consider inferolateral ischemia Abnormal ECG When compared with ECG of 04-AUG-2019 18:45, fusion complexes are now present premature ventricular complexes. are now present ST no longer elevated in Inferior leads T wave inversion now evident in Lateral leads Unconfirmed Result
[2020-02-23 09:21] LABS: ALBUMIN 3.8 g/dL (3.5-5.0); CALCIUM 9.1 mg/dL (8.8-10.2); CREATININE 11.8 mg/dL (0.5-0.9); PHOSPHORUS 10.3 mg/dL (2.7-4.5)
[2020-02-23] MEDS: HUMULIN R SUBQ SCH ×3 (11:59→21:06)
--- NOTE | 2020-02-23 17:21 | NEPHROLOGY CONSULTATION ---
DATE: 02/23/2020 REASON FOR CONSULTATION: ESRD, per Dr. Moon. I was also contacted directly by the nurse practitioner in the emergency room for assistance with management. HISTORY OF PRESENT ILLNESS: Ms. Gonzalez is a 59-year-old, -[place] woman who is on peritoneal dialysis for management of CKD 5D secondary to diabetes. She has obesity, blindness, neurogenic bladder, suprapubic catheter, hypertension, CHF, etc. She performs 2.5 L x4 exchanges daily by manual CAPD prescription. She uses primarily green bags (2.5% Dianeal) but occasional red bags (4.25% Dianeal). She came into the hospital because she has had several days of not feeling well. She is constipated and anorexic but no nausea or vomiting. She had vague left lower quadrant pain. She has not noticed any changes with her PD fluid. She has had no break in technique. These symptoms prompted her to call her primary care doctor (Dr. Rodriguez). Home health was directed to the house, who evaluated the patient and felt she was volume contracted. She was directed to the emergency room. She did not contact our office during this episode. PAST MEDICAL HISTORY: As above. HOME MEDICATIONS: Include omeprazole, losartan, pravastatin, aspirin, insulin, cyanocobalamin, Atarax, metoprolol, gabapentin, furosemide, Colace, hydrocodone. ALLERGIES: Ciprofloxacin, propoxyphene. SOCIAL HISTORY: She lives alone but her son is actively involved in her care and assists with her dialysis. No alcohol or tobacco. FAMILY HISTORY: Noncontributory. REVIEW OF SYSTEMS: Noncontributory. PHYSICAL EXAMINATION: Vital Signs: Blood pressure 99/53, heart rate 65, respirations 20, afebrile. Examination performed at approximately 8 a.m. General: Obese, black female in no acute distress. Skin is dry with some scaling. Pupils not examined. Conjunctivae are pale. Oropharynx is dry. Tongue is coated. Neck: Neck veins are not appreciated. Heart: PMI is nonpalpable. Regular rate and rhythm without murmurs, rubs, gallops. Lungs: Have equal breath sounds. No crackles or wheezes. Abdomen: Soft and minimally tender. No guarding or rebound. Bowel sounds are present. Exit site is normal in appearance. Extremities: No edema, clubbing, or cyanosis. IMPRESSION: Intravascular volume depletion. Likely a complex of constipation, volume contraction related to Dianeal concentration. We will focus on improving her bowel habits. We will discontinue her furosemide and modify her gabapentin dose. Normal saline today and yellow (1.5% Dianeal). We will follow with you. She is currently on peritoneal dialysis. cc: Agapito Thompson MD
--- NOTE | 2020-02-23 19:49 | PROGRESS NOTE ---
DATE: 02/23/2020 SUBJECTIVE: The patient states that she does not have an appetite. She complains of mild nausea and occasional abdominal pain. She had a bowel movement this afternoon. OBJECTIVE: Vital Signs: Temperature 98.3 degrees, blood pressure 110/54, heart rate 84, respirations 19, O2 saturation is 93% on 2 L nasal cannula. General: This is a morbidly obese female lying in bed in no acute distress. Heart: S1, S2 normal. Regular rate and rhythm. Lungs: Mild expiratory wheezes. No crackles. No rales. Abdomen: Soft, mildly distended, diffuse tenderness. Extremities: No edema, no cyanosis, no calf tenderness. Neurologic: The patient is alert and oriented x3. LABORATORY DATA: White blood cell count 11, hemoglobin 9.3, hematocrit 31, platelets 356,000. Sodium 135, potassium 4, chloride 86, CO2 is 25, BUN 52, creatinine 11, glucose 268, calcium 9.1, phosphorus 10.3. ASSESSMENT AND PLAN: 1. Nausea with abdominal pain. Will continue on a renal/diabetic diet. The patient has been started on a laxative regimen. Continue with antiemetic therapy. 2. Urinary tract infection. The urine culture is growing gram-negative rods. Continue on Rocephin pending the culture results. 3. Left basilar infiltrate. We will continue with broad-spectrum antibiotics. We will also check a procalcitonin level. Continue with bronchodilator therapy and supplemental oxygen. We will add incentive spirometry. 4. Chronic kidney disease stage 5D on peritoneal dialysis. Management as per the cinder worker. 5. Hypertension. Continue on the current antihypertensive regimen. 6. Morbid obesity. Aware. 7. Insulin dependent diabetes mellitus type. Restart Humulin 70/30. 8. Left buttock wound. We will consult with Wound Care. 9. Gastrointestinal prophylaxis. We will start the patient on IV Protonix. 10. Deep vein thrombosis prophylaxis. We will start the patient on heparin. 11. Disposition. Physical therapy has been consulted. cc: Justa Hammond MD MTDD
[2020-02-23] MEDS ORDERED: INSULIN PEN NEEDLES ONE (20:54)
[2020-02-23] MEDS: PRAVACHOL PO SCH (21:05)
[2020-02-23] MEDS: LACTULOSE PO SCH (21:06)
[2020-02-23] MEDS: HUMULIN 70/30 SUBQ SCH (21:06)
[2020-02-23] MEDS: ZOFRAN IV PRN (21:06)
[2020-02-23] MEDS: NS 1,000 ML IV SCH (21:06)
[2020-02-23] MEDS: HEPARIN SUBQ SCH (21:26)
[2020-02-24] MEDS: ROCEPHIN 1 GM in NS 50 ML IV SCH (01:00)
[2020-02-24] MEDS: DUONEB (A & A) INH SCH ×7 (02:03→23:05)
[2020-02-24 05:32] LABS: BASO# 0.03 X1000 (0.0-0.2); BASO% 0.3 % (0.0-0.8); EOS# 0.18 X1000 (0.0-0.7); EOS% 1.5 % (0.0-10.0); HEMATOCRIT 28.5 % (37.0-47.0); HEMOGLOBIN 8.5 g/dL (12.0-16.0); IMM GRAN# 0.11 X1000 (0.0-0.04); IMM GRAN% 0.9 % (0.0-0.5); LYMPH% 12.7 % (20.5-51.1); MCH 25.7 PG (27-31); MCHC 29.8 g/dL (33-37); MCV 86.1 FL (81-99); MONO# 0.94 X1000 (0.11-0.59); MONO% 7.9 % (1.7-9.3); MPV 10.1 FL (7.4-10.4); NEUT# 9.07 X1000 (1.4-6.5); NEUT% 76.7 % (42.2-75.2); PLT 301 X1000 (130-400); RBC 3.31 XMIL (4.2-5.4); WBC 11.83 X1000 (4.8-10.8)
[2020-02-24] MEDS: HUMULIN R SUBQ SCH ×4 (06:04→20:35)
[2020-02-24] MEDS: PRILOSEC PO SCH (06:04)
[2020-02-24] MEDS: NORCO-10 PO PRN ×2 (06:22→15:29)
[2020-02-24 06:41] LABS: ALBUMIN 3.4 g/dL (3.5-5.0); CALCIUM 8.2 mg/dL (8.8-10.2); PHOSPHORUS 10.6 mg/dL (2.7-4.5); POTASSIUM 3.9 mmol/L (3.5-5.1)
[2020-02-24 06:54] LABS: CREATININE 11.5 mg/dL (0.5-0.9)
[2020-02-24] MEDS ORDERED: PROTONIX IV SCH (07:00)
--- NOTE | 2020-02-24 07:21 | Diag Imaging Result Doc PS360 ---
CHEST-1 VIEW - 02/24/2020 INDICATION: infiltrate COMPARISON: 02/22/2020 FINDINGS: Lung volumes are severely low similar to prior. There is some linear atelectasis in the lung bases. No definite infiltrates. Heart size is borderline. IMPRESSION: Severely low lung volumes. Borderline cardiomegaly. No definite infiltrates. Electronically signed by Bubba Velarde 02/24/2020 7:18 AM
[2020-02-24] MEDS: TOPROL XL PO SCH (08:14)
[2020-02-24] MEDS: ZITHROMAX PO SCH (08:14)
[2020-02-24] MEDS: COZAAR PO SCH (08:14)
[2020-02-24] MEDS: LACTULOSE PO SCH (08:14)
[2020-02-24] MEDS: VITAMIN B-12 PO SCH (08:14)
[2020-02-24] MEDS: COLACE PO SCH (08:15)
[2020-02-24] MEDS: HEPARIN SUBQ SCH ×2 (08:15→20:34)
[2020-02-24] MEDS: HUMULIN 70/30 SUBQ SCH ×2 (08:15→20:36)
[2020-02-24] MEDS: ASPIRIN PO SCH (08:18)
[2020-02-24] MEDS: PHOSLO PO SCH ×3 (08:21→17:53)
[2020-02-24] MEDS: NS 1,000 ML IV SCH (10:11)
[2020-02-24] MEDS: ZOFRAN IV PRN ×3 (10:11→20:44)
--- NOTE | 2020-02-24 11:10 | NEPHROLOGY PROGRESS NOTE ---
DATE: 02/24/2020 SUBJECTIVE: She still remains anorexic and nauseated. Her left lower quadrant discomfort has resolved. She has had several bowel movements since being administered lactulose. This has not improved her symptoms. She states her symptoms were abrupt in onset about 1 week prior to admission. OBJECTIVE: Vital Signs: Blood pressure 115/41, heart rate 90, respirations 16, afebrile. Intake 1 L; recorded output 300 mL. None recorded with dialysis. General: Again ill-appearing, but no acute distress. Skin: Warm and dry. HEENT: Conjunctivae are pink. Oropharynx is dry. Neck: Neck veins are not distended. Trachea is midline. Heart: PMI is not palpable. Regular rate and rhythm without gallops. Lungs: Have equal breath sounds. No crackles or wheezes. Abdomen: Obese, soft, nontender. Bowel sounds are present. Ostomies are not examined. Extremities: With 1+ edema around the hips. No clubbing or cyanosis. IMPRESSION: 1. Nausea, anorexia. I was hopeful that treatment of her constipation would improve her symptoms, but that has not occurred. She sees Dr. Piper, so I will ask him to see her and reassess her symptoms with us. 2. Chronic kidney disease 5 D. We will continue treatment using the cycler. 2 L exchanges and 2.5% Dianeal tonight. 3. Hyperphosphatemia. Add PhosLo. 4. Anemia. Hemoglobin 8.5 today. We will check stool Hemoccult, iron studies, B 12 and folate. cc: Agapito Thompson MD
[2020-02-24] MEDS ORDERED: CALMOSEPTINE OINTMENT TOP PRN (12:20)
--- NOTE | 2020-02-24 12:41 | PROGRESS NOTE ---
DATE: 02/24/2020 SUBJECTIVE: The patient states that she had a rough night. She complains of nausea, vomiting, and diarrhea. She states that she did not eat her breakfast due to abdominal pain. OBJECTIVE: Vital Signs: Temperature 97.7 degrees, blood pressure 115/41, heart rate 90, respirations 16, O2 saturation is 98% on 3 L nasal cannula. General: This is a morbidly obese female, sitting up in bed, in no acute distress. Heart: S1, S2 normal. Regular rate and rhythm. Lungs: Equal air entry bilaterally. Mild expiratory wheezes. Abdomen: Positive bowel sounds. Soft, nontender. Mildly distended. Extremities: No edema, no cyanosis. Neurologic: The patient is alert and oriented x3. Labs: White blood cell count 11, hemoglobin 8.5, hematocrit 28, platelets 301,000. Sodium 132, potassium 3.9, chloride 87, CO2 of 22, BUN 55, creatinine 11, glucose 324. ASSESSMENT AND PLAN: 1. Nausea, vomiting, diarrhea, and abdominal pain. The patient's CT of the abdomen and pelvis is unremarkable. Will order stool studies. Gastroenterology has been consulted for further recommendations. Continue on intravenous Protonix. Will add lactobacillus. 2. Possible pneumonia. The patient is currently on antibiotic therapy, bronchodilator therapy, and supplemental oxygen. We will await the results of the procalcitonin. So far, the blood cultures remain negative. 3. 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 Continue on Rocephin. 4. Chronic kidney disease stage 5D. Management as per the body artist. 5. Hypertension. Stable. Continue on the current antihypertensive regimen. 6. Poorly controlled insulin-dependent diabetes mellitus. Will restart Humulin 70/30. Will also increase the sliding scale coverage. 7. Morbid obesity. Aware. 8. Left buttock wound. Wound care has been consulted. 9. Anemia. Iron studies are pending. Continue to monitor. 10. DANIEL. Aware. Noncompliant with CPAP. 11. PAD. Aware. Continue on aspirin. 12. Deep vein thrombosis prophylaxis. Continue on heparin. 13. Disposition. Physical therapy has been consulted. cc: Justa Hammond MD MTDD
[2020-02-24] MEDS ORDERED: PHENERGAN IV PRN (15:48)
[2020-02-24] MEDS ORDERED: SODIUM CHLORIDE 0.9% INJ PRN (15:48)
--- NOTE | 2020-02-24 16:19 | Diag Imaging Result Doc PS360 ---
EXAM: ABDOMEN FLAT/UPRIGHT INDICATION: abdominal pain TECHNIQUE: 2 views COMPARISON: 12/09/2017 FINDINGS: There are unremarkable bowel gas and stool patterns. There is no obstructive bowel pattern. There is no evidence of large volume free abdominal gas. A peritoneal dialysis catheter projects over the pelvis. IMPRESSION: No evidence of acute pathology by plain radiograph. Electronically signed by Otf Hagan 02/24/2020 4:16 PM
[2020-02-24] MEDS: SODIUM CHLORIDE 0.9% INJ SCH (18:47)
[2020-02-24] MEDS: PROTONIX IV SCH (18:47)
[2020-02-24] MEDS: CULTURELLE PO SCH (20:34)
[2020-02-24] MEDS: PRAVACHOL PO SCH (20:34)
[2020-02-24] MEDS: NEURONTIN PO SCH (20:34)
[2020-02-24] MEDS ORDERED: HUMULIN 70/30 SUBQ SCH (21:00)
[2020-02-25] MEDS: ROCEPHIN 1 GM in NS 50 ML IV SCH (01:35)
[2020-02-25] MEDS: DUONEB (A & A) INH SCH ×6 (03:05→23:53)
[2020-02-25 05:31] LABS: BASO# 0.03 X1000 (0.0-0.2); BASO% 0.3 % (0.0-0.8); EOS# 0.17 X1000 (0.0-0.7); EOS% 1.8 % (0.0-10.0); HEMATOCRIT 27.6 % (37.0-47.0); HEMOGLOBIN 8.3 g/dL (12.0-16.0); IMM GRAN# 0.12 X1000 (0.0-0.04); IMM GRAN% 1.2 % (0.0-0.5); LYMPH# 0.95 X1000 (1.2-3.4); LYMPH% 9.8 % (20.5-51.1); MCH 25.6 PG (27-31); MCHC 30.1 g/dL (33-37); MCV 85.2 FL (81-99); MONO# 0.76 X1000 (0.11-0.59); MONO% 7.8 % (1.7-9.3); NEUT# 7.68 X1000 (1.4-6.5); NEUT% 79.1 % (42.2-75.2); PLT 297 X1000 (130-400); RBC 3.24 XMIL (4.2-5.4); WBC 9.71 X1000 (4.8-10.8)
[2020-02-25 05:45] LABS: ALB/GLOB RATIO 0.9; ALBUMIN 3.3 g/dL (3.5-5.0); DIRECT BILIRUBIN 0.1 mg/dL (0.00-0.20); TOTAL BILIRUBIN 0.22 mg/dL (0.20-1.00); TOTAL PROTEIN 7.1 g/dL (6.3-8.3)
[2020-02-25 05:49] LABS: IRON SATURATION 30 %; TIBC 163 ug/dL; TOTAL IRON 49 ug/dL (49-151); UNBOUND IRON 114 ug/dL (112-346)
[2020-02-25 06:01] LABS: ALBUMIN 3.1 g/dL (3.5-5.0); CALCIUM 7.8 mg/dL (8.8-10.2); PHOSPHORUS 8.7 mg/dL (2.7-4.5); POTASSIUM 4.2 mmol/L (3.5-5.1)
[2020-02-25 06:04] LABS: CREATININE 10.4 mg/dL (0.5-0.9)
[2020-02-25 06:28] LABS: FERRITIN 912 ng/mL (13-150)
[2020-02-25] MEDS: HUMULIN R SUBQ SCH ×4 (06:39→20:29)
[2020-02-25] MEDS: PROTONIX IV SCH ×2 (06:40→18:17)
[2020-02-25] MEDS ORDERED: HUMULIN 70/30 SUBQ SCH (09:00)
--- NOTE | 2020-02-25 10:15 | Diag Imaging Result Doc PS360 ---
EXAM: GASTRIC EMPTYING HISTORY: persistent nausea and vomiting/Diabetic TECHNIQUE: Nuclear medicine gastric emptying exam COMPARISON: None. FINDINGS: 583 uCi sulfur colloid taken with oatmeal. Imaging for two hours performed. T1 half is calculated to be 54 minutes. IMPRESSION: Normal exam. Electronically signed by Daryl Means 02/25/2020 10:13 AM
[2020-02-25] MEDS: ASPIRIN PO SCH (11:11)
[2020-02-25] MEDS: ZITHROMAX PO SCH (11:11)
[2020-02-25] MEDS: VITAMIN B-12 PO SCH (11:11)
[2020-02-25] MEDS: CULTURELLE PO SCH ×2 (11:11→20:33)
[2020-02-25] MEDS: HEPARIN SUBQ SCH ×2 (11:12→20:34)
[2020-02-25] MEDS: PHOSLO PO SCH ×3 (11:18→17:51)
[2020-02-25] MEDS: TOPROL XL PO SCH (11:24)
[2020-02-25] MEDS: ZOFRAN IV PRN ×2 (11:25→15:53)
[2020-02-25] MEDS: MIRALAX PO SCH ×2 (11:32→20:35)
--- NOTE | 2020-02-25 12:25 | NEPHROLOGY PROGRESS NOTE ---
DATE: 02/25/2020 SUBJECTIVE: She still has some nausea. Pain is improved but still present; better overall, however. OBJECTIVE: Vital Signs: Blood pressure 101/44, heart rate 68, respirations 16, afebrile. General: Obese. No acute distress. Skin: Warm and dry. Neck: Neck veins are not appreciated. Heart: Regular, distant. Lungs: Equal, clear. Abdomen: Distended, soft. Bowel sounds present. Extremities: There is 1+ edema. IMPRESSION: Nausea and vomiting. Possible uremic. Her BUN has come down to 50, creatinine down 10. I will increase her fill volume to 2.[address] Piper and his assistance with evaluation. cc: Agapito Thompson MD
[2020-02-25] MEDS: COZAAR PO SCH (12:50)
[2020-02-25] MEDS: HUMULIN 70/30 SUBQ SCH ×2 (12:51→20:31)
--- NOTE | 2020-02-25 13:42 | GASTROENTEROLOGY CONSULTATION ---
DATE: 02/25/2020 REASON FOR CONSULTATION: Nausea, abdominal pain, and low hemoglobin. HISTORY OF PRESENT ILLNESS: Ms. Gonzalez is a 59-year-old female with a history of congestive heart failure, end-stage renal disease on dialysis. CVA, GERD, COPD, sleep apnea, hypertension, obesity, and has a suprapubic catheter. Initially the patient was admitted at [facility] and then was transferred to [facility] on 02/22/2020 with complaints of nausea which she said it has been going on for quite a few days. The patient has denied having any vomiting. She mentioned that when the home health nurse came to see her, she told her that she was dehydrated and she needed to go to the hospital. The patient did complain of abdominal pain rated as 4/10 and described it as a dull pain. The patient mentioned that she has not been having an appetite for the last 4 weeks. She has lost around 10 pounds approximately. The patient's last bowel movement was on Saturday. She described it as a soft stool. Denied noticing any blood in her stools. The patient lives with her son and she has denied having anybody sick around the house. She receives her dialysis almost every day of the week. Patient has her EGD done on 03/06/2019, findings were esophagitis, gastritis and food in the duodenal bulb and stomach. Biopsy revealed gastritis, positive for H-pylori s/p antibiotic treatment. PAST MEDICAL HISTORY: End-stage renal disease on dialysis, diabetes type 2, suprapubic catheter, hypertension, congestive heart failure. Obesity, GERD, COPD, sleep apnea, and CVA. ALLERGIES: The patient is allergic to Cipro, Darvocet, latex, tomato, and hydromorphone. SOCIAL HISTORY: The patient is single. She lives with her son. She has denied smoking. Denied drinking alcohol or using illicit drugs. PAST SURGICAL HISTORY: The patient has a peritoneal dialysis catheter in her left side of the abdomen, partial hysterectomy, eye surgery and a suprapubic catheter. FAMILY HISTORY: Positive for hypertension and diabetes. HOME MEDICATIONS: The patient's home medications are omeprazole 40 mg p.o. daily, pravastatin 40 mg p.o. at bedtime, losartan 50 mg p.o. daily, aspirin 325 mg p.o. daily, Humulin 70/30 110 units subcutaneous at p.m., hydroxyzine 50 mg at bedtime, vitamin B12 is 500 mcg p.o. daily, metoprolol 200 mg p.o. daily. Humulin 70/30 137 units subcutaneous daily at a.m., Neurontin 300 mg 3 times a day, furosemide 40 mg p.o. twice a day, Colace 100 mg twice a day, Reading 7.5/325 mg 1 tablet every 6 hours as needed. REVIEW OF SYSTEMS: As per HPI. Otherwise, 12 point review of system is negative physical. PHYSICAL EXAMINATION: Vital Signs: Temperature 97.5, pulse 68, respirations 16, blood pressure 101/44, oxygen 100% on room air. The patient's weight is 245 pounds. BMI is 44.9 kg. General: She is alert, oriented x3. She is no acute distress. Answering questions appropriately. HEENT: Pale conjunctivae. No icterus, PERRL. Neck: Supple. Lungs: Clear to auscultation. Cardiovascular: Regular rate and rhythm. Abdomen: Morbidly obese. Tender in the upper quadrant. She has a dialysis catheter on the left side of the abdomen. Suprapubic catheter in the lower part of the abdomen, hyperactive bowel sounds heard in all 4 quadrants. Extremities: No clubbing, no cyanosis, no edema. Neurologic: Alert and oriented x3. Nonfocal. Cranial nerves 2-12 grossly intact. LABS: WBCs are 9.71, RBCs 3.24, hemoglobin 8.3, hematocrit is 27.6, platelet count is 297,000. Sodium 134, potassium 4.2, chloride 88, carbon dioxide 23, anion gap 23, BUN 50, creatinine 10.4, glucose 288, calcium 7.8, phosphorus 8.7, total bilirubin 0.22, AST 10, ALT 15, alkaline phosphatase is 154, albumin is 3.3. IMAGING: Abdominal x-ray yesterday showed no evidence of acute pathology. Gastric emptying study showed normal exam. IMPRESSION AND PLAN: Nausea suspect Uremia vs Gastritis or constipation Normal Gastric Emptying study done today 02-25-2020 abdominal pain Anemia of chronic disease ESRD on dialysis being followed by Dr Thompson. Constipation PLAN: Ms. Gonzalez is a 59-year-old female with a history of end-stage renal disease on dialysis. GI has been consulted for her nausea, abdominal pain, and low hemoglobin. The patient's H & H currently is 8.3 and 27.6. We have started the patient on MiraLAX twice a day and Dulcolax daily at bedtime for her constipation. The patient is also receiving multivitamins daily for her anemia. We will continue her with PPIs twice a day. If the patient is still symptomatic, we will plan to do her EGD as an outpatient. We will continue to monitor the patient and follow the plan of care per PCP. This plan was discussed with Dr. Piper. Thank you for the consult. Please call us for any further questions or concerns. Dictated by ABIGAIL Hendrickson for Chase Piper MD cc: Chase Piper MD I have seen and examined the patient myself and I agree with the above plan of care. Please call us with any further questions or concerns. MTDD
[2020-02-25] MEDS: HEMOCYTE PLUS CAPSULE PO SCH (14:11)
[2020-02-25] MEDS: NORCO-10 PO PRN ×2 (14:11→20:34)
[2020-02-25] MEDS: SODIUM CHLORIDE 0.9% INJ SCH (18:17)
--- NOTE | 2020-02-25 18:34 | PROGRESS NOTE ---
DATE: 02/25/2020 SUBJECTIVE: The patient states that she feels a little bit better today. She denies any episodes of nausea, vomiting, or diarrhea today. She just returned from her gastric emptying study. OBJECTIVE: Vital Signs: Temperature 98 degrees, blood pressure 97/46, heart rate 68, respirations 16, O2 saturations 100% on 3 L nasal cannula. General: This is a morbidly obese female lying in bed in no acute distress. Heart: S1, S2 normal. Regular rate and rhythm. Lungs: Equal air entry bilaterally. No wheezing. No rales. No rhonchi. Abdomen: Positive bowel sounds. Soft. There is a peritoneal dialysis catheter in place. Nontender. Extremities: The patient has an eschar on the left heel that is dry with a foul odor. Trace pedal edema. Neurologic: The patient is alert and oriented x3. LABS: White blood cell count 9.7, hemoglobin 8.3, hematocrit 27, platelets 297,000. Sodium 134, potassium 4.2, chloride 88, CO2 23, BUN 50, creatinine 10, glucose 288. IMAGING: Gastric emptying study normal. ASSESSMENT AND PLAN: 1. Abdominal pain with associated nausea and intermittent vomiting. The patient states that she feels much better today. We will continue with p.r.n. antiemetic treatment. The patient's gastric emptying study was normal. Continue to monitor closely for improvement. The patient has been seen by Gastroenterology. We will advance the patient to a full liquid diet today. 2. Pneumonia. The procalcitonin was 1.1. We will continue with the current antibiotic regimen and we will continue to try and wean the patient off of supplemental oxygen. 3. 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 The patient is on Rocephin. 4. Secondary hyperparathyroidism. The patient is on PhosLo. 5. Poorly controlled insulin-dependent diabetes mellitus. Continue on the current insulin regimen. 6. Left heel eschar. Continue with wound care. 7. Hypotension. We will hold the patient's antihypertensive therapy today. 8. Chronic kidney disease stage 5D. Management as per the dry chain operator. 9. Folate deficiency. We will start the patient on folic acid. 10. Anemia. The patient's hemoglobin and hematocrit are slowly trending downward. Stool for occult blood is pending. 11. Obstructive sleep apnea. Aware. 12. Peripheral arterial disease. Aware. 13. Morbid obesity. Aware. 14. Deep venous thrombosis prophylaxis. Continue on heparin. 15. Disposition. Continue with Physical Therapy. cc: Justa Hammond MD MTDD
[2020-02-25] MEDS: PRAVACHOL PO SCH (20:33)
[2020-02-25] MEDS: NEURONTIN PO SCH (20:33)
[2020-02-25] MEDS: DULCOLAX PR SCH ×2 (20:33→20:42)
[2020-02-26] MEDS: ROCEPHIN 1 GM in NS 50 ML IV SCH (01:27)
[2020-02-26] MEDS: DUONEB (A & A) INH SCH ×4 (03:57→15:50)
[2020-02-26] MEDS ORDERED: INSULIN PEN NEEDLES ONE (04:22)
[2020-02-26 06:03] LABS: HEMATOCRIT 28.7 % (37.0-47.0); HEMOGLOBIN 8.8 g/dL (12.0-16.0); MCH 26.3 PG (27-31); MCHC 30.7 g/dL (33-37); MCV 85.9 FL (81-99); MPV 10.3 FL (7.4-10.4); RBC 3.34 XMIL (4.2-5.4); RDW 13.1 % (11.5-14.5); WBC 7.91 X1000 (4.8-10.8)
[2020-02-26 06:41] LABS: ALBUMIN 3.3 g/dL (3.5-5.0); CALCIUM 8.6 mg/dL (8.8-10.2); CREATININE 11.3 mg/dL (0.5-0.9); PHOSPHORUS 7.5 mg/dL (2.7-4.5); POTASSIUM 3.6 mmol/L (3.5-5.1)
[2020-02-26] MEDS: PROTONIX IV SCH ×3 (06:45→21:17)
[2020-02-26] MEDS: HUMULIN R SUBQ SCH ×4 (06:48→21:17)
[2020-02-26] MEDS: SODIUM CHLORIDE 0.9% INJ SCH (06:52)
[2020-02-26] MEDS: MYCOSTATIN SUSP PO SCH ×4 (09:40→21:17)
[2020-02-26] MEDS: MIRALAX PO SCH ×2 (09:40→21:19)
[2020-02-26] MEDS: HEMOCYTE PLUS CAPSULE PO SCH (09:41)
[2020-02-26] MEDS: CULTURELLE PO SCH ×2 (09:41→21:17)
[2020-02-26] MEDS: COZAAR PO SCH (09:41)
[2020-02-26] MEDS: HUMULIN 70/30 SUBQ SCH ×2 (09:41→22:05)
[2020-02-26] MEDS: ASPIRIN PO SCH (09:42)
[2020-02-26] MEDS: HEPARIN SUBQ SCH ×2 (09:42→22:05)
[2020-02-26] MEDS: TOPROL XL PO SCH (09:42)
[2020-02-26] MEDS: ZITHROMAX PO SCH (09:42)
[2020-02-26] MEDS: FOLIC ACID PO SCH (09:42)
[2020-02-26] MEDS: PHOSLO PO SCH ×3 (09:42→17:42)
[2020-02-26] MEDS: VITAMIN B-12 PO SCH (09:43)
--- NOTE | 2020-02-26 12:04 | GASTROENTEROLOGY PROGRESS NOTE ---
DATE: 02/26/2020 SUBJECTIVE: Ms. Gonzalez is a 55-year-old female resting in bed. The patient was complaining of having headache and feeling anxious. The patient complains of being nauseated but has denied any vomiting. She is on a full liquid diet and was able to tolerate a diet well. She has denied having any bowel movements today. OBJECTIVE: Vital Signs: Temperature 97.9 degrees, pulse 77, respirations 18, blood pressure 112/57, oxygen saturation 95% on 3 L nasal cannula. The patient's weight is 245 pounds. BMI is 45.0 kg/m2. General: She is alert and oriented x3, and in no acute distress. HEENT: Pale conjunctivae. No icterus. PERRL. Neck: Supple. Lungs: Clear to auscultation. Cardiovascular: Regular rate and rhythm. Abdomen: Morbidly obese. Tender in the upper quadrant. Has a dialysis catheter on the left side of the abdomen, suprapubic catheter in the lower part of the abdomen. Active bowel sounds heard in all 4 quadrants. Extremities: No clubbing, no cyanosis. Generalized edema. Pedal pulses 1+ present bilaterally. She has got an eschar on her left heel. Neurological: Alert and oriented x3. LABORATORY DATA: WBCs are 7.91, RBCs 3.34, hemoglobin is 8.8, hematocrit is 28.7, platelet count is 273,000. Sodium is 135, potassium is 3.6, chloride is 89, carbon dioxide is 24, anion gap is 22, BUN is 46, creatinine is 11.3, glucose is 224, calcium is 8.6, phosphorus is 7.5, albumin is 3.3. IMPRESSION AND PLAN: Nausea Abdominal pain Anemia of chronic disease ESRD on hemodialysis Constipation PLAN: Ms. Gonzalez is a 59-year-old female with a history of end-stage renal disease on dialysis. GI is following her for nausea and abdominal pain. The patient's hemoglobin and hematocrit today is 8.8 and 28.7, it has trended upwards. The patient has denied noticing any bleeding episodes. She is currently receiving antibiotic Rocephin. We will continue her on multivitamins, PPIs, Culturelle. For her bowel regimen she is on MiraLAX 17 grams and Dulcolax 10 mg suppository at bedtime. We have asked her to follow us up as an outpatient in 4 weeks and have a repeat EGD in 3 months as an outpatient. This plan was discussed with Dr. Cesar. Please call us for any further questions or concerns. Dictated by ABIGAIL Hendrickson for Nuno Cesar MD [facility]
--- NOTE | 2020-02-26 13:48 | PROGRESS NOTE ---
DATE: 02/26/2020 SUBJECTIVE: The patient states that she did not sleep well last night because monitor kept going off for her peritoneal dialysis as well as the IV infusion, the IV pump kept going off as well. The patient complains of involuntary tremors in her hands and difficulty with walking due to tremors and feeling shaky. She denies any abdominal pain, nausea or vomiting this morning. She was able to eat all of her breakfast and keep it down. OBJECTIVE: Vital Signs: Temperature 98.5 degrees, blood pressure 117/48, heart rate 84, respirations 17, O2 saturation 97% on 3 L nasal cannula. General: This is a morbidly obese female lying in bed in no acute distress. Heart: S1, S2 normal. Regular rate and rhythm. Lungs: Equal air entry bilaterally. No wheezing. No rales. No rhonchi. Abdomen: Positive bowel sounds. Soft, nontender. There is a peritoneal dialysis catheter in place. Extremities: Trace pedal edema. There is a small foul smelling eschar on the left heel. Neurologic: The patient is alert and oriented x3. LABS: White blood cell count 7.9, hemoglobin 8.8, hematocrit 28, platelets 273,000. Sodium 135, potassium 3.6, chloride 89, CO2 24, BUN 46, creatinine 11.3, glucose 224, albumin 3.3. ASSESSMENT AND PLAN: 1. Abdominal pain with intermittent nausea and vomiting. This appears to be improved today. The patient was able to tolerate her breakfast. Continue on p.r.n. antiemetic therapy and laxatives. Gastroenterology is following. We will advance the patient's diet as tolerated. 2. Acute on chronic hypoxemic respiratory failure. Continue to treat the underlying pneumonia. 3. Pneumonia. Continue on the current antibiotic regimen. 4. Oral candidiasis. Will start Mycostatin. 5. 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 The patient is on Rocephin. 6. Secondary hyperparathyroidism. Continue on PhosLo. 7. Left heel eschar. The wound has a foul odor coming from it. There is no drainage. The patient has requested to be seen by the general surgeon. We will consult the general surgeon. Continue with wound care. 8. Hypertension. Continue to monitor closely. We may need to adjust the patient's antihypertensive therapy. 9. Chronic kidney disease stage 5D. The patient is on peritoneal dialysis. 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 10. Folate deficiency. Continue on folic acid. 11. Obstructive sleep apnea. Aware. 12. Peripheral arterial disease. Aware. 13. Morbid obesity. Aware. 14. Anemia. Stable. 15. Deep vein thrombosis prophylaxis. Continue on heparin. 16. Disposition. Continue with physical therapy. We will continue to monitor the patient over the weekend. cc: Justa Hammond MD [facility]
--- NOTE | 2020-02-26 17:03 | NEPHROLOGY PROGRESS NOTE ---
DATE: 02/26/2020 SUBJECTIVE: She is sitting up in the chair sleeping. No complaints. OBJECTIVE: Vital Signs: Blood pressure 117/48, heart rate 84, respirations 17, afebrile. General: No acute distress. She is snoring, but no obstruction. Skin: Warm and dry. Neck: Neck veins are not appreciated. Heart: Regular. Lungs: Equal, sonorous, no crackles. Abdomen: Obese, soft, nontender. Bowel sounds present. Extremities: 1+ edema. No clubbing or cyanosis. IMPRESSION: Chronic kidney disease 5D. We increased her dialysis prescription and her BUN is now below 50. Electrolytes and acid-base are in target. She still has some edema. Her last chest x- ray was on the . I will repeat this in the morning. Continue IV antibiotics. Nutrition. Physical therapy. cc: Agapito Thompson MD
--- NOTE | 2020-02-26 18:24 | Diag Imaging Result Doc PS360 ---
CHEST-PORTABLE - 02/26/2020 INDICATION: reassess pneumonia COMPARISON: 02/24/2020 FINDINGS: Lung volumes are severely low. There is borderline cardiomegaly. Stable patchy atelectasis in the lung bases. IMPRESSION: No change from prior. Electronically signed by Bubba Velarde 02/26/2020 6:22 PM
--- NOTE | 2020-02-26 19:49 | GENERAL SURGERY CONSULTATION ---
DATE: 02/26/2020 HISTORY OF PRESENT ILLNESS: Ms. Gonzalez is a 59-year-old female, who has CKD 5 and is on peritoneal dialysis. She also has a history of heart failure, COPD, obesity, hypertension and diabetes mellitus. She was admitted with some GI tract symptoms, but was coincidentally found to have an ulceration on the plantar aspect of her left heel with foul odor. I have been asked to see her regarding this infection. PAST MEDICAL HISTORY: As I said, her past medical history is pertinent for CKD 5, on peritoneal dialysis; diabetes mellitus; hypertension; congestive heart failure; obesity; gastroesophageal reflux disease; COPD; sleep apnea. MEDICATIONS: Her medications are listed and include omeprazole, losartan, pravastatin, aspirin, Humulin 70/30, vitamin C, Atarax, metoprolol, gabapentin, Lasix, Colace and [place] 7.5. ALLERGIES: She has allergies to Cipro, Darvocet, latex, tomato and hydromorphone. SOCIAL HISTORY: She denies smoking, alcohol or illicit drug use. FAMILY HISTORY: Pertinent for hypertension and diabetes. PAST SURGICAL HISTORY: Previous surgeries include a PD catheter placement, a toe amputation by Dr. Garcia, hysterectomy and eye surgery. REVIEW OF SYSTEMS: Negative in 10 subsystems except as noted above. PHYSICAL EXAMINATION: She is afebrile. Heart rate 82, blood pressure is 116/43. No cervical adenopathy. Bilateral breath sounds. Heart is regular rate and rhythm. Abdomen is soft. PD catheter is in place. No palpable pedal pulses are noted. She does have a quarter-sized ulceration on the plantar aspect of her foot, with some spongy tissue and a foul odor. PLAN: The plan will be excisional debridement of the left heel. I have discussed this with her. She understands and agrees. cc: Bertram Anderson MD
[2020-02-26] MEDS: ZOFRAN IV PRN (20:19)
[2020-02-26] MEDS: PRAVACHOL PO SCH (21:17)
[2020-02-26] MEDS: DULCOLAX PR SCH (21:18)
[2020-02-26] MEDS: NEURONTIN PO SCH (21:35)
[2020-02-27] MEDS: ROCEPHIN 1 GM in NS 50 ML IV SCH (02:58)
[2020-02-27] MEDS: DUONEB (A & A) INH SCH ×7 (05:51→23:00)
[2020-02-27 07:14] LABS: HEMATOCRIT 25.8 % (37.0-47.0); MCH 26.4 PG (27-31); MCV 85.1 FL (81-99); MPV 9.9 FL (7.4-10.4); RBC 3.03 XMIL (4.2-5.4); WBC 8.37 X1000 (4.8-10.8)
[2020-02-27] MEDS: HUMULIN R SUBQ SCH ×4 (07:28→22:02)
[2020-02-27 07:40] LABS: POTASSIUM 3.8 mmol/L (3.5-5.1)
[2020-02-27] MEDS ORDERED: DIPRIVAN 1% ONE (08:37)
[2020-02-27] MEDS ORDERED: XYLOCAINE-MPF 2% ONE (08:38)
--- NOTE | 2020-02-27 08:50 | Diag Imaging Result Doc PS360 ---
CT THORAX W/O CONTRAST - 02/27/2020 INDICATION: pneumonia COMPARISON: Chest x-ray from 02/26/2020 FINDINGS: Lung volumes are low. No infiltrates. Airways are clear. No adenopathy. Heart and great vessels are normal. There is trace ascites in the upper abdomen. IMPRESSION: Negative for pneumonia. Low lung volumes. This exam was performed using automated exposure control, adjustment of mA or kV according to patient size, and/or use of iterative reconstruction technique Electronically signed by Bubba Velarde 02/27/2020 8:48 AM
--- NOTE | 2020-02-27 09:51 | OPERATIVE NOTE ---
PROCEDURE DATE: 02/27/2020 PROCEDURE: Excisional debridement of infected left heel ulcer. SURGEON: Bertram Anderson MD. ASSISTANTS: Rk and Kristin. PREOPERATIVE DIAGNOSIS: Infected left heel ulcer. POSTOPERATIVE DIAGNOSIS: Infected left heel ulcer. DESCRIPTION OF PROCEDURE: Satisfactory general anesthesia was achieved. An LMA was used. The left foot was prepped and draped in a sterile fashion. We sharply excised the eschar and underlying necrotic tissue. The debridement went all the way to the calcaneus. The measurement was 4 x 2.5 x 1 cm. We got back to viable tissue. We irrigated out the wound, achieved satisfactory hemostasis, then packed the wound with Betadine-impregnated gauze, followed by sterile 4 x 4s, followed by sterile Kerlix and an Max. She tolerated it well. Estimated blood loss is 5 mL. cc: Bertram Anderson MD
[2020-02-27] MEDS ORDERED: HUMULIN 70/30 SUBQ ONE (10:48)
[2020-02-27] MEDS: PHOSLO PO SCH ×3 (11:08→17:45)
[2020-02-27] MEDS: PROTONIX IV SCH ×2 (11:44→22:02)
[2020-02-27] MEDS: MIRALAX PO SCH ×2 (11:44→22:02)
[2020-02-27] MEDS: MYCOSTATIN SUSP PO SCH ×4 (11:45→22:01)
[2020-02-27] MEDS: COZAAR PO SCH (11:45)
[2020-02-27] MEDS: HEMOCYTE PLUS CAPSULE PO SCH (11:46)
[2020-02-27] MEDS: CULTURELLE PO SCH ×2 (11:46→22:01)
[2020-02-27] MEDS: ASPIRIN PO SCH (11:46)
[2020-02-27] MEDS: TOPROL XL PO SCH (11:46)
[2020-02-27] MEDS: FOLIC ACID PO SCH (11:47)
[2020-02-27] MEDS: HEPARIN SUBQ SCH ×2 (11:47→22:01)
[2020-02-27] MEDS: VITAMIN B-12 PO SCH (11:47)
[2020-02-27] MEDS: HUMULIN 70/30 SUBQ SCH ×2 (11:57→22:07)
--- NOTE | 2020-02-27 12:26 | NEPHROLOGY PROGRESS NOTE ---
DATE: 02/27/2020 SUBJECTIVE: She is coughing a little more, but still no sputum production. Still somewhat anorexic, though improved. She underwent sharp debridement of the left heel today. It had to be debrided all the way down to the calcaneus; done by Dr. Anderson. OBJECTIVE: Vital signs: Blood pressure 136/54, heart rate 86, respiration 18, afebrile. General: No acute distress. Skin: Skin is warm and dry. Neck: Neck veins are not appreciated. Cardiovascular: Heart is regular. Lungs: Equal. Abdomen: Obese, nontender. Bowel sounds present. Extremities: 1+ edema. IMPRESSION: 1. Chronic kidney disease 5 D. We increased her dialysis prescription. 2. Nutrition. We will add supplements. 3. Pneumonia. Continue current antibiotics. 4. Status post wound debridement. 5. Physical therapy. cc: Agapito Thompson MD
--- NOTE | 2020-02-27 13:49 | GASTROENTEROLOGY PROGRESS NOTE ---
DATE: 02/27/2020 SUBJECTIVE: Ms. Gonzalez is a 59-year-old female resting in bed, nursing staff at the bedside administrating medicines. The patient has denied any headaches or feeling anxious today. She is complaining of slight abdominal pain in the epigastric area. The patient is currently on a full liquid diet, and she has also denied any nausea or vomiting. She is able to tolerate her diet well. The patient had a few bowel movements yesterday, but denied one today. The patient had an excisional debridement of the infected left lower heel ulcer this morning. OBJECTIVE: Vital Signs: Temperature 97.8 degrees, pulse 86, blood pressure 136/54, oxygen saturation 95% on 4 L nasal cannula. The patient's weight is 244 pounds. BMI is 44.5 kg/m2. General: She is alert and oriented x3, and in no acute distress. HEENT: Pale conjunctivae. No icterus. PERRL. Neck: Supple. Lungs: Mild wheezing heard in the anterior posadas. Cardiovascular: Regular rate and rhythm. Abdomen: Obese, distended, tender in the epigastric area. Has a dialysis catheter on the left quadrant, suprapubic catheter in the lower quadrant. Extremities: No clubbing. No cyanosis. Dressing on the left lower extremity. Neurologic: Alert and oriented x3. DIAGNOSTIC DATA: WBC is 8.37, RBC 3.03, hemoglobin is 8.0, hematocrit is 25.8, platelet count is 272,000. Sodium 132, potassium 3.8, chloride 88, carbon dioxide 25, anion gap 19, BUN 39, creatinine is 10, glucose is 300. Calcium is 9.0. The patient's chest CT today showed negative for pneumonia, low lung volumes. IMPRESSION AND PLAN: 1. Nausea. 2. Abdominal pain. 3. Anemia of chronic disease. 4. ESRD on hemodialysis. 5. Constipation. 6. S/p left heel debridement. PLAN: Ms. Gonzalez is a 59-year-old female with a history of end-stage renal disease on dialysis. GI is following her for nausea and abdominal pain. Currently, the patient's nausea is under control. Her hemoglobin and hematocrit today is 8.0 and 25.8. The patient had debridement done on her left lower heel by Dr. Anderson. Her constipation is somewhat resolved. She is currently on MiraLAX and Dulcolax for a bowel regimen. The patient is also receiving PPIs twice a day and Culturelle twice a day. She is also on a multivitamin daily. We have discussed with the patient that we will follow her up as an outpatient in 4 weeks and will plan to do an EGD in 3 months as an outpatient. This plan was discussed with Dr. Arias. Please call us for any further questions or concerns. Dictated by ABIGAIL Hendrickson for Sherry Arias MD cc: Sherry Arias MD [facility]
--- NOTE | 2020-02-27 19:23 | PROGRESS NOTE ---
DATE: 02/27/2020 SUBJECTIVE: The patient had debridement done on her left heel. She states that she did not sleep well last night. OBJECTIVE: Vital Signs: Temperature 98 degrees, blood pressure 114/41, heart rate 79 respirations 20, O2 saturations is 100% on 3 L nasal cannula. General: This is a morbidly obese female lying in bed in no acute distress. Heart: S1, S2 normal. Regular rate and rhythm. Lungs: Equal air entry bilaterally. No wheezing. No rales. Abdomen: Positive bowel sounds. Soft, nontender, nondistended. Extremities: The left foot is wrapped in a clean dry dressing. Trace edema in the right foot. Neurologic: The patient is alert and oriented x3. LABORATORY DATA: White blood cell count 8.3, hemoglobin 8, hematocrit 25, platelets 272,000. Sodium 132, potassium 3.8, BUN 39, creatinine 10, glucose 300. IMAGING: CT chest negative for pneumonia. ASSESSMENT AND PLAN: 1. Abdominal pain with intermittent nausea and vomiting. Slowly improving. Continue on the current treatment regimen as directed by GI. 2. Chronic hypoxemic respiratory failure. Continue with supplemental oxygen. 3. Pneumonia. Resolved. 4. Infected left heel status post debridement. Continue on Rocephin and wound care. 5. Oral candidiasis. Continue on Mycostatin. 6. 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 We will repeat the urinalysis. 7. Hypertension. Controlled. 8. Chronic kidney disease stage 5D. Continue with peritoneal dialysis as directed by the network programmer. 9. Folate deficiency. Continue on folic acid. 10. Secondary hyperparathyroidism. Continue on PhosLo. 11. Obstructive sleep apnea. Aware. 12. Morbid obesity. Aware. 13. Peripheral arterial disease. Aware. 14. Anemia. The hemoglobin and hematocrit is low but stable. 15. Deep vein thrombosis prophylaxis. Continue on heparin. 16. Disposition. Continue with physical therapy. cc: Justa Hammond MD [facility]
[2020-02-27] MEDS: PRAVACHOL PO SCH (22:01)
[2020-02-27] MEDS: NEURONTIN PO SCH (22:06)
[2020-02-27] MEDS: SODIUM CHLORIDE 0.9% INJ SCH (22:06)
[2020-02-27] MEDS: DULCOLAX PR SCH (22:21)
[2020-02-28] MEDS: ROCEPHIN 1 GM in NS 50 ML IV SCH (01:50)
[2020-02-28] MEDS: DUONEB (A & A) INH SCH ×6 (03:13→23:37)
[2020-02-28] MEDS: HUMALOG SUBQ SCH ×4 (06:43→21:39)
[2020-02-28] MEDS: HUMULIN R SUBQ SCH ×4 (06:44→21:38)
[2020-02-28 07:39] LABS: HEMATOCRIT 26.7 % (37.0-47.0); MCV 86.7 FL (81-99); MPV 9.9 FL (7.4-10.4); RBC 3.08 XMIL (4.2-5.4); RDW 13.1 % (11.5-14.5); WBC 7.73 X1000 (4.8-10.8)
[2020-02-28 08:27] LABS: ALBUMIN 3.2 g/dL (3.5-5.0); CALCIUM 9.1 mg/dL (8.8-10.2); PHOSPHORUS 6.6 mg/dL (2.7-4.5); POTASSIUM 3.6 mmol/L (3.5-5.1)
[2020-02-28] MEDS: HEPARIN SUBQ SCH ×2 (09:37→21:32)
[2020-02-28] MEDS: PHOSLO PO SCH ×3 (09:38→17:16)
[2020-02-28] MEDS: MYCOSTATIN SUSP PO SCH ×4 (09:38→21:37)
[2020-02-28] MEDS: PROTONIX IV SCH ×2 (09:38→19:50)
[2020-02-28] MEDS: VITAMIN B-12 PO SCH (09:39)
[2020-02-28] MEDS: COZAAR PO SCH (09:39)
[2020-02-28] MEDS: FOLIC ACID PO SCH (09:39)
[2020-02-28] MEDS: TOPROL XL PO SCH (09:39)
[2020-02-28] MEDS: CULTURELLE PO SCH ×2 (09:39→21:32)
[2020-02-28] MEDS: ASPIRIN PO SCH (09:39)
[2020-02-28] MEDS: HEMOCYTE PLUS CAPSULE PO SCH (09:39)
[2020-02-28] MEDS: HUMULIN 70/30 SUBQ SCH (09:40)
[2020-02-28] MEDS ORDERED: INSULIN PEN NEEDLES ONE (09:53)
[2020-02-28] MEDS: NORCO-10 PO PRN ×2 (09:55→21:36)
[2020-02-28] MEDS: MIRALAX PO SCH ×2 (09:56→21:37)
--- NOTE | 2020-02-28 13:47 | GENERAL SURGERY PROGRESS NOTE ---
DATE: 02/28/2020 Ms. Gonzalez's heel is unwrapped and evaluated. It looks better than it did. She is afebrile. White count is normal. We will continue with the Betadine gauze for now. cc: Bertram Anderson MD
--- NOTE | 2020-02-28 15:15 | GASTROENTEROLOGY PROGRESS NOTE ---
DATE: 02/28/2020 SUBJECTIVE: Ms. Gonzalez is a 59-year-old female. She is sitting in the recliner having her lunch. The patient has denied any nausea, vomiting or abdominal pain but she is complaining of left leg hurting where the debridement was done. Patient is on a diabetic diet and is able to tolerate her diet well. Patient has not had a bowel movement today. OBJECTIVE: Vital Signs: Temperature 98.2 degrees, pulse 68, respirations 20, blood pressure 101/57, oxygen saturation 100% on 4 L nasal cannula, patient's weight is 249 pounds, BMI is 45.6 kg per meter square. General: She is alert, oriented x3 in no acute distress. HEENT: Pale conjunctivae. No icterus. JACKIE. Neck: Supple. Lungs: Mild wheezing heard in the anterior posadas. Cardiovascular: Regular rate and rhythm. Abdomen: Obese, distended, nontender. Has a dialysis catheter on the left quadrant, suprapubic catheter in the lower quadrant. Extremities: No clubbing, no cyanosis. Patient has a wound on the left heel that was debrided. Neurologic: Alert, oriented x3. LABS: WBCs are 7.73, RBCs 3.08, hemoglobin is 8.0, hematocrit is 26.7, platelet count is 280,000. Sodium 142, potassium 3.6, chloride 88, carbon dioxide 27, anion gap 17, BUN 17, creatinine 38, glucose is 279, calcium is 9.1, phosphorus is 6.6, albumin is 3.2. IMAGING: Chest CT yesterday showed negative for pneumonia, low lung volumes. IMPRESSION AND PLAN: Nausea Abdominal pain Anemia of chronic disease ESRD on dialysis Constipation S/p left heel debridement PLAN: Ms Gonzalez is a 59-year-old female with a history of end- stage renal disease GI is following her for an nausea and abdominal pain. Currently the patient's nausea and abdominal pain is under control. Her hemoglobin and hematocrit today was 8.0 and 26.7, patient is hemodynamically stable. Constipation is getting better. She is having positive bowel movements. Patient is on antiemetics Zofran for nausea. She is on antibiotic Rocephin. We will continue her with PPIs twice a day. Patient is also on Culturelle. For her bowel regimen, she is on MiraLAX and Dulcolax. She is on folic acid and multivitamin daily. We will continue to monitor the patient and follow the plan of care per PCP. This plan was discussed with Dr. Arias. Please call us for any further questions or concerns. Dictated by ABIGAIL Hendrickson for Sherry Arias MD cc: Sherry Arias MD [facility]
[2020-02-28] MEDS ORDERED: DIFLUCAN PO ONE (16:32)
[2020-02-28 17:07] LABS: URINE SOURCE CATH
--- NOTE | 2020-02-28 17:07 | PROGRESS NOTE ---
DATE: 02/28/2020 SUBJECTIVE: The patient is sitting up in a chair. She complains of pain in her left foot. She states that she is eating well and no longer having abdominal pain. She reports that she had a bowel movement last night. OBJECTIVE: Vital Signs: Temperature 97.6 degrees, blood pressure 102/50, heart rate 71, respirations 20, O2 saturation 97% on 3 L nasal cannula, intake 250, output 371. General: This is a morbidly obese female sitting up in chair in no acute distress. Heart: S1, S2 normal. Regular rate and rhythm. Lungs: Mild expiratory wheezes. Abdomen: Positive bowel sounds. Soft. There is a peritoneal dialysis catheter in place. Extremities: The left foot is wrapped in a clean dry Max bandage. Trace edema in the right leg. Neuro: The patient is alert and oriented x3. LABS: White blood cell count 7.7, hemoglobin 8, hematocrit 26, platelets 280,000. Sodium 132, potassium 3.6, chloride 88, CO2 27, BUN 38, creatinine 10, glucose 279, phosphorus 6.6. ASSESSMENT AND PLAN: 1. Abdominal pain with intermittent nausea and vomiting. Resolved. 2. Chronic hypoxemic respiratory failure. Continue with supplemental oxygen. 3. Pneumonia. Resolved. 4. Infected left heel status post debridement. Continue with antibiotic therapy and wound care. 5. Oral candidiasis. Continue on Mycostatin. Will give the patient a dose of Diflucan. 6. 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 The patient has completed 6 days of antibiotic therapy. A repeat urinalysis has been ordered. 7. Hypertension. Controlled. 8. Chronic kidney disease stage 5D. Continue with peritoneal dialysis. 9. Secondary hyperparathyroidism. Continue on PhosLo. 10. Folate deficiency. Continue on folic acid. 11. Morbid obesity. Aware. 12. Peripheral arterial disease. Aware. 13. Obstructive sleep apnea. Aware. 14. Anemia. Low but stable. 15. Disposition. The patient is requesting to be discharged home possibly tomorrow. Will continue with physical therapy. cc: Justa Hammond MD [facility]
[2020-02-28 17:12] LABS: BILIRUBIN URINE SMALL (NEGATIVE); BLOOD URINE LARGE (NEGATIVE); CLARITY TURBID (CLEAR); COLOR STRAW; GLUCOSE URINE NEGATIVE (NEGATIVE); KETONE URINE TRACE mg/dL (NEGATIVE); LEUKOCYTES URINE SMALL (NEGATIVE); NITRITE URINE NEGATIVE (NEGATIVE); PROTEIN URINE 100 mg/dL (NEGATIVE); SP GRAVITY URINE >= 1.030; UROBILINOGEN URINE 0.2 EU/dL (0.2-1.0)
[2020-02-28 17:17] LABS: URINE BACTERIA 2+ /HFP; URINE EPITHELIAL CELLS <10 /HPF (<10); URINE RBC 20-40 /HPF (<10); URINE YEAST PRESENT /HPF
[2020-02-28 17:18] LABS: URINE CAST NONE SEEN /LPF; URINE CRYSTAL NONE SEEN /HPF; URINE SMALL ROUND CELLS TRANSITIONAL PRESENT; URINE WBC TNTC /HPF (<10)
[2020-02-28] MEDS: ZOFRAN IV PRN (19:50)
[2020-02-28] MEDS: SODIUM CHLORIDE 0.9% INJ SCH (19:50)
[2020-02-28] MEDS ORDERED: HUMULIN 70/30 SUBQ SCH (21:00)
[2020-02-28] MEDS: PRAVACHOL PO SCH (21:31)
[2020-02-28] MEDS: NEURONTIN PO SCH (21:32)
[2020-02-28] MEDS: DULCOLAX PR SCH (21:39)
[2020-02-29] MEDS: DUONEB (A & A) INH SCH ×6 (03:55→23:45)
[2020-02-29] MEDS: HUMALOG SUBQ SCH ×3 (06:17→16:35)
[2020-02-29] MEDS: HUMULIN R SUBQ SCH ×4 (06:18→22:21)
[2020-02-29] MEDS: ROCEPHIN 1 GM in NS 50 ML IV SCH (06:18)
[2020-02-29 07:12] LABS: HEMATOCRIT 28.4 % (37.0-47.0); HEMOGLOBIN 8.1 g/dL (12.0-16.0); MCHC 28.5 g/dL (33-37); MCV 87.7 FL (81-99); MPV 9.9 FL (7.4-10.4); RBC 3.24 XMIL (4.2-5.4); RDW 13.1 % (11.5-14.5); WBC 8.05 X1000 (4.8-10.8)
--- NOTE | 2020-02-29 07:17 | Diag Imaging Result Doc PS360 ---
EXAM: CHEST-PORTABLE HISTORY: dyspnea TECHNIQUE: Single view COMPARISON: 02/26/2020 FINDINGS: Poor inspiratory effort. Heart is enlarged. Mild pulmonary edema. No pleural effusions identified. No consolidation. IMPRESSION: Mild interval worsening Electronically signed by Daryl Means 02/29/2020 7:15 AM
[2020-02-29 07:54] LABS: ALBUMIN 3.2 g/dL (3.5-5.0); CALCIUM 8.9 mg/dL (8.8-10.2); CREATININE 9.8 mg/dL (0.5-0.9); PHOSPHORUS 6.5 mg/dL (2.7-4.5); POTASSIUM 3.7 mmol/L (3.5-5.1)
[2020-02-29] MEDS: HEPARIN SUBQ SCH ×2 (09:53→21:32)
[2020-02-29] MEDS: SODIUM CHLORIDE 0.9% INJ SCH (09:53)
[2020-02-29] MEDS: PHOSLO PO SCH ×3 (09:53→16:32)
[2020-02-29] MEDS: PROTONIX IV SCH ×2 (09:53→21:32)
[2020-02-29] MEDS: MYCOSTATIN SUSP PO SCH (09:54)
[2020-02-29] MEDS: VITAMIN B-12 PO SCH (09:54)
[2020-02-29] MEDS: FOLIC ACID PO SCH (09:54)
[2020-02-29] MEDS: TOPROL XL PO SCH (09:54)
[2020-02-29] MEDS: CULTURELLE PO SCH ×2 (09:54→21:32)
[2020-02-29] MEDS: COZAAR PO SCH (09:54)
[2020-02-29] MEDS: ASPIRIN PO SCH (09:54)
[2020-02-29] MEDS: HEMOCYTE PLUS CAPSULE PO SCH (09:54)
[2020-02-29] MEDS: MIRALAX PO SCH ×2 (09:55→21:32)
[2020-02-29] MEDS: HUMULIN 70/30 SUBQ SCH ×2 (10:01→22:21)
--- NOTE | 2020-02-29 10:44 | Diag Imaging Result Doc PS360 ---
EXAM: KUB ABDOMEN HISTORY: constipation TECHNIQUE: Two views COMPARISON: 02/24/2020 FINDINGS: There is stool throughout the colon. No bowel obstruction. No organomegaly. No abnormal abdominal calcifications. A catheter overlies the pelvis. There are several pelvic phleboliths. IMPRESSION: Moderate constipation Electronically signed by Daryl Means 02/29/2020 10:41 AM
[2020-02-29] MEDS ORDERED: DIFLUCAN 100 MG/NS 100 MG/50 ML IVPB IV ONE (12:00)
[2020-02-29 12:10] LABS: BODY FLUID SOURCE PERI DIAL FLUID
[2020-02-29 12:11] LABS: MONOS 60 %; POLYS 40 %; WBC BF 280 /cumm
--- NOTE | 2020-02-29 14:07 | PROGRESS NOTE ---
DATE: 02/29/2020 SUBJECTIVE: The patient states that she had a rough night, last night she started having nausea and had an episode of vomiting and this morning she states that her abdomen has been hurting and she was so nauseated she could not eat breakfast. She states that she gets headaches whenever she is having GI issues. OBJECTIVE: Vital Signs: Temperature 97.9 degrees, blood pressure 110/50, heart rate 70, respirations 18, O2 saturations 100% on 2 L nasal cannula. General: This is a chronically ill- appearing elderly female sitting up in a chair in no acute distress. Heart: S1, S2 normal. Regular rate and rhythm. Lungs: Equal air entry bilaterally. Mild expiratory wheezes. Abdomen: Positive bowel sounds. Soft. There is a peritoneal dialysis catheter in place. Extremities: 1+ edema. The left foot is wrapped in a clean dry dressing. Neuro: The patient is alert and oriented x3. LABS: White blood cell count 8, hemoglobin 8.1, hematocrit 28, platelets 309,000. Sodium 135, potassium 3.7, chloride 90, CO2 27, BUN 39, creatinine 9.8, glucose 332, phosphorus 6.5, albumin 3.2. ASSESSMENT AND PLAN: 1. Abdominal pain with intermittent nausea and vomiting. The patient is scheduled to undergo an esophagogastroduodenoscopy tomorrow. Continue with antiemetic therapy. 2. Chronic hypoxemic respiratory failure. Unchanged. Continue with supplemental oxygen. 3. Pneumonia. Resolved. 4. 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 The patient appears to be colonized with Serratia. She has completed 7 days of antibiotic therapy, however her urinalysis shows evidence of a urinary tract infection. The patient does complain of occasional burning. We will continue to monitor closely. The patient is afebrile with a normal white count. 5. Status post debridement of the infected left heel. Continue with antibiotic therapy and wound care. 6. Oral candidiasis. The patient states that she cannot tolerate the Mycostatin because it makes her nauseous. Will switch the patient to Diflucan. 7. Hypertension. Controlled. 8. Chronic kidney disease stage 5D. Continue with peritoneal dialysis. 9. Secondary hyperparathyroidism. Continue on PhosLo. 10. Morbid obesity. Aware. 11. Peripheral arterial disease. Aware. 12. Obstructive sleep apnea. The patient is not compliant with CPAP. 13. Anemia. The hemoglobin and hematocrit are stable. 14. Chronic constipation. Continue on miralax, colace and dulcolax. 15. Disposition. The patient is scheduled to undergo an EGD tomorrow. She is still having intermittent nausea and vomiting associated with abdominal pain. Will continue with physical therapy. cc: Justa Hammond MD [facility]
--- NOTE | 2020-02-29 14:11 | GASTROENTEROLOGY PROGRESS NOTE ---
DATE: 02/29/2020 SUBJECTIVE: Ms. Gonzalez is a 59-year-old female sitting in the recliner. The patient is complaining of nausea, vomiting and abdominal pain. The patient also is complaining about left foot which was debrided. OBJECTIVE: Vital Signs: Temperature 97.9, pulse 70, respirations 18, blood pressure 110/50, oxygen saturation 100% on 2 L nasal cannula. The patient's weight is 250 pounds. BMI is 45.4 kg/m2. General: Alert, oriented x3 in no acute distress. HEENT: Pale conjunctivae, no icterus. PERRL. Neck: Supple. Lungs: Wheezing heard in the anterior posadas. Cardiovascular: Regular rate and rhythm. Abdomen: Obese, distended, tender, has dialysis catheter on the left quadrant. Suprapubic catheter is in the lower quadrant. Extremities: No clubbing. No cyanosis. The patient has a wound on the left heel that was debrided. Neurologic: Alert and oriented x3. LABS: WBCs are 8.05, RBCs is 3.24, hemoglobin is 8.1, hematocrit is 28.4, platelet count is 309,000. Sodium is 135, potassium 3.7, chloride is 90, carbon dioxide 27, anion gap 18, BUN 39, creatinine is 9.8, glucose is 332, calcium is 8.9, phosphorus 6.5, and albumin is 3.2. Urinalysis yesterday showed urine clarity was turbid, protein 100, trace of ketones, large amount of blood, small amount of bilirubin, small amount of WBC. IMAGING: Chest x-ray today showed mild interval worsening. Abdomen x-ray has shown moderate constipation. IMPRESSION AND PLAN: 1. Nausea and vomiting-vomited once this AM. 2. Abdominal pain. 3. Anemia of chronic disease. 4. ESRD on dialysis. 5. Constipation. 6. S/p Left heel debridement. PLAN: Ms. Gonzalez is a 59-year-old female with a history of end-stage renal disease. GI is following her for nausea and abdominal pain. Today, the patient is complaining of abdominal pain, nausea and vomiting. We plan to do an EGD tomorrow to find out the cause of her nausea and vomiting. The patient had 1 bowel movement today, but her abdominal x-ray shows that she is still having mild constipation. The patient is currently on a bowel regimen, MiraLAX 17 g twice a day and Dulcolax suppository 10 mg p.o. at bedtime. The patient is also on folic acid, multivitamin, and she is receiving Culturelle 1 tablet. We will continue her with PPIs. Discussed the risks, benefits and alternatives of the procedure. Further plan of care will be based on the EGD findings. This plan was discussed with Dr. Piper. Please call us for any further questions or concerns. Dictated by ABIGAIL Hendrickson for Chase Piper MD cc: Chase Piper MD I have seen and examined the patient myself and I agree with the above plan of care. Please call us with any further questions or concerns. [facility]
--- NOTE | 2020-02-29 16:28 | GENERAL SURGERY PROGRESS NOTE ---
DATE: 02/29/2020 Ms. Gonzalez's heel wound looks better. No necrotic debris is seen. She is afebrile. PLAN: To switch her to Vashe gauze in the wound in hopes that we can initiate some granulation tissue. cc: Bertram Anderson MD
--- NOTE | 2020-02-29 17:51 | NEPHROLOGY PROGRESS NOTE ---
DATE: 02/29/2020 SUBJECTIVE: She had colonoscopy today. Dr. Piper was concerned about abdominal discomfort. She had vomiting after minimal intake today. OBJECTIVE: Vital Signs: Blood pressure 129/52, heart rate 70, respiration 18, afebrile. General: Obese woman. No acute distress. Skin: Warm and dry. Neck: Neck veins are not appreciated. Abdomen: Soft. Extremities: 1+ edema. IMPRESSION: 1. Chronic kidney disease 5D. We will continue her routine prescription based on her expanded prescription that we added earlier this last week. 2. Abdominal discomfort. Will sample her PD fluid again today. 3. Focus on constipation. 4. Electrolytes/acid base in target. 5. Anemia. Hemoglobin is stable. cc: Agapito Thompson MD
[2020-02-29] MEDS: NEURONTIN PO SCH (21:31)
[2020-02-29] MEDS: DULCOLAX PR SCH (21:32)
[2020-02-29] MEDS: PRAVACHOL PO SCH (21:32)
[2020-02-29] MEDS: COLACE PO SCH (21:34)
[2020-03-01] MEDS: DUONEB (A & A) INH SCH ×5 (03:38→19:38)
[2020-03-01] MEDS: ROCEPHIN 1 GM in NS 50 ML IV SCH (06:02)
[2020-03-01] MEDS: HUMULIN R SUBQ SCH ×4 (06:02→20:55)
[2020-03-01 07:11] LABS: HEMOGLOBIN 7.8 g/dL (12.0-16.0); MCH 25.5 PG (27-31); MCHC 28.9 g/dL (33-37); MCV 88.2 FL (81-99); RBC 3.06 XMIL (4.2-5.4); RDW 13.2 % (11.5-14.5); WBC 9.3 X1000 (4.8-10.8)
[2020-03-01 07:34] LABS: ALBUMIN 3.2 g/dL (3.5-5.0); CALCIUM 9.1 mg/dL (8.8-10.2); PHOSPHORUS 5.9 mg/dL (2.7-4.5); POTASSIUM 3.6 mmol/L (3.5-5.1)
[2020-03-01 07:48] LABS: CREATININE 11.3 mg/dL (0.5-0.9)
[2020-03-01] MEDS: PHOSLO PO SCH ×3 (08:28→16:23)
[2020-03-01] MEDS: COLACE PO SCH (08:29)
[2020-03-01] MEDS: ASPIRIN PO SCH (08:29)
[2020-03-01] MEDS: COZAAR PO SCH (08:29)
[2020-03-01] MEDS: CULTURELLE PO SCH ×2 (08:29→20:53)
[2020-03-01] MEDS: HEPARIN SUBQ SCH ×2 (08:30→20:53)
[2020-03-01] MEDS: FOLIC ACID PO SCH (08:30)
[2020-03-01] MEDS: DIFLUCAN PO SCH (08:30)
[2020-03-01] MEDS: HEMOCYTE PLUS CAPSULE PO SCH (08:30)
[2020-03-01] MEDS: MIRALAX PO SCH ×2 (08:31→20:53)
[2020-03-01] MEDS: HUMULIN 70/30 SUBQ SCH ×2 (08:31→20:54)
[2020-03-01] MEDS: VITAMIN B-12 PO SCH (08:31)
[2020-03-01] MEDS: TOPROL XL PO SCH (08:31)
[2020-03-01] MEDS: PROTONIX IV SCH (08:34)
[2020-03-01 09:42] LABS: BODY FLUID SOURCE PERI DIAL FLUID; MONOS 48 %; POLYS 52 %; WBC BF 52 /cumm
--- NOTE | 2020-03-01 09:42 | ENDOSCOPY OPERATIVE NOTE ---
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 PROCEDURE PERFORMED: EGD w/ biopsy MEDICATIONS: Per Anesthesia ESTIMATED BLOOD LOSS: None CONSENT: The patient understands the risks and benefits of the procedure and understands that these r isks include, but are not limited to: sedation, allergic reaction, infection, perforation and/or bleeding. Alternative means of evaluation and treatment include, among others: physical exam, x-rays, and/or surgical intervention. The patient elects to proceed with this endoscopic procedure. DESCRIPTION OF PROCEDURE: During pre-op preparation period all mechanical and medical equipment was c hecked for proper function. Hand hygiene and appropriate measures for infection prevention was taken. After the risks, benefits and alternatives of the procedure were thoroughly explained, Informed consent was verified, confirmed and timeout was successfully executed by the treatment team. The patient was anesthetized with topical anesthesia and the AX80-[id number] ([id number]) endoscope was introduced through the mouth and advanced to the second portion of the duoden um. Retroflexion was performed in the stomach and revealed no abnormalities. The gastroscope was then slowly withdraw n and removed. The patient's toleration of the procedure was good. ESOPHAGUS: Esophagitis dessicans was noted in the lower third of the esophagus. STOMACH: Moderate, stripped gastritis (inflammation) was found in the gastric antrum. A biopsy was p erformed using cold forceps. Sample sent for histology. DUODENUM: The duodenal mucosa showed no abnormalities. ADVERSE EVENTS: There were no complications. IMPRESSIONS: ESOPHAGUS: Esophagitis dessicans was noted in the lower third of the esophagus. STOMACH: Moderate, stripped gastritis (inflammation) was found in the gastric antrum. A biopsy was p erformed using cold forceps. Sample sent for histology. DUODENUM: The duodenal mucosa showed no abnormalities. RECOMMENDATIONS: 1. Await biopsy results 2. Continue PPI PO BID 3. Continue antiemetics 4. Her nausea and vomiting is likely multifactorial REPEAT EXAM: Nuno Cesar MD eSigned: Nuno Cesar MD 03/01/2020 9:42 AM CC: CPT CODES: 21032 Upper gastrointestinal endoscopy including esophagus, stomach, and either the du odenum and/or jejunum as appropriate; with biopsy, single or multiple ICD CODES: 789.07 Abdominal pain,generalized 787.02 Nausea 787.03 Vomiting,unspecified The ICD and CPT codes recommended by this software are interpretations from the data that the [facility] emergency room staff has captured with the software. The verification of the translation of this report to the ICD and CPT co delores and modifiers is the sole responsibility of the health care institution and practicing physician where this report was generated. [employer] will not be held responsible for the validity of the ICD and CPT codes i ncluded on this report. [employer] assumes no liability for data contained or not contained herein. CPT is a registered tra [employer]ark of the [employer]. PATIENT NAME: Fannie Gonzalez MR#: [id number]
[2020-03-01] MEDS ORDERED: AMIDATE ONE (09:48)
[2020-03-01] MEDS ORDERED: XYLOCAINE-MPF 2% ONE ×2 (09:48)
[2020-03-01] MEDS ORDERED: DIPRIVAN 1% ONE (09:50)
--- NOTE | 2020-03-01 10:44 | GENERAL SURGERY PROGRESS NOTE ---
DATE: 03/01/2020 She is afebrile. Her heel wound is satisfactory. There was no obvious necrotic debris present. We are now using Vashe. She will ultimately need a multi Podus boot for that foot. cc: Bertram Anderson MD
--- NOTE | 2020-03-01 14:33 | PROGRESS NOTE ---
DATE: 03/01/2020 INTERVAL HISTORY: The patient underwent upper endoscopy which detected esophagitis and gastritis. After the endoscopy, she was started on a clear liquid diet. However, she did have persistent nausea. REVIEW OF SYSTEMS: Negative for chest pain, shortness of breath. Positive for cough. VITAL SIGNS: Temperature 98.4 degrees, pulse 75, respiratory rate 14, blood pressure 129/51, saturating 100% on room air. PHYSICAL EXAMINATION: Obese. Not in any acute distress. Oral cavity is moist. Air entry bilaterally equal. No wheeze, rhonchi, or crackles. S1, S2 normal. No murmur, rub, or gallop except a systolic murmur affecting second intercostal space. Abdomen is obese, soft, nontender. She has a left quadrant peritoneal dialysis catheter. She also has a suprapubic catheter with clear urine. No lower extremity edema. She is alert and oriented x3. LABS: Suggestive of hemoglobin of 7.8, platelets 290,000. BUN 38, creatinine 11.3, blood glucose 272. Peritoneal fluid had WBC of 52. MICROBIOLOGY: No positive data. IMAGING: No new imaging. ASSESSMENT AND PLAN: 1. Recurrent nausea and vomiting with abdominal pain. Esophagogastroduodenoscopy had esophagitis and moderate gastritis. She also has marked elevation of creatinine, which could also be contributing. Continue proton pump inhibitors and change it to oral twice a day. CT scan of the abdomen and pelvis was rather unremarkable. Peritoneal fluid analysis has WBCs between 55 and 280, without any detectable bacteria. 2. 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 Continue intravenous ceftriaxone for a total of 7 to 10 days. The patient is currently afebrile with normal white count. 3. Left heel ischemic ulcer, status post debridement. Continue dressings as per surgical team's recommendation. 4. Others. Continue fluconazole for oral candidiasis; oxygen for chronic hypoxic respiratory failure and obstructive sleep apnea; MiraLAX and Dulcolax for constipation. 5. Chronic kidney disease stage 5. The patient is on peritoneal dialysis as per nephrology recommendations. I will keep her on calcium acetate. 6. Continue gabapentin for neuropathic pain, aspirin for peripheral artery disease, along with vitamin B12, [place] for chronic pain, current dose of insulin for insulin-dependent diabetes mellitus type 2, losartan and metoprolol for essential hypertension. 7. Disposition. Continue to monitor patient inside the hospital. Plan of care was discussed with the patient. All of her questions have been answered. cc: Timur Cole MD
--- NOTE | 2020-03-01 16:10 | NEPHROLOGY PROGRESS NOTE ---
DATE: 03/01/2020 SUBJECTIVE: She has had bowel movements though they have been below normal in volume. Her abdominal discomfort is somewhat better. White count in her PD fluid was within the normal range. She had endoscopy and had marked abnormality of the distal esophagus. She is also complaining of tremors. This is worse with intention and affects her hips and her hands. OBJECTIVE: Vital Signs: Blood pressure 129/51, heart rate 75, respirations 14, afebrile. General: No acute distress. Skin: Warm and dry. Conjunctivae are pink. Neck: Neck veins are not visible. Heart: Regular. Lungs: Equal. Abdomen: Obese, nontender. Extremities: 1+ edema. Neuro: Tremor with muscular contraction. IMPRESSION: 1. Tremor. I believe gabapentin is most likely cause so I will discontinue this. 2. Constipation. She continues to have problems. Her polyethylene glycol is ordered twice a day but she states she is only getting it once a day. I will add lactulose to her regimen and see how she tolerates this. 3. Chronic kidney disease 5D. She will have her routine dialysis today. 4. Pyuria with yeast. She is on fluconazole. cc: Agpaito Thompson MD
[2020-03-01] MEDS: LACTULOSE PO SCH (20:53)
[2020-03-01] MEDS: PRAVACHOL PO SCH (20:53)
[2020-03-01] MEDS: PRILOSEC PO SCH (20:53)
[2020-03-01] MEDS: DULCOLAX PR SCH (20:55)
[2020-03-02] MEDS: DUONEB (A & A) INH SCH ×6 (00:20→21:31)
[2020-03-02] MEDS: ZOFRAN IV PRN (01:24)
[2020-03-02] MEDS: PRILOSEC PO SCH ×2 (06:28→22:26)
[2020-03-02] MEDS: ROCEPHIN 1 GM in NS 50 ML IV SCH (06:29)
[2020-03-02] MEDS: HUMULIN R SUBQ SCH ×3 (06:29→22:28)
[2020-03-02] MEDS: PHOSLO PO SCH ×3 (09:41→17:26)
[2020-03-02] MEDS: HEPARIN SUBQ SCH ×2 (09:41→22:26)
[2020-03-02] MEDS: CULTURELLE PO SCH ×2 (09:41→22:25)
[2020-03-02] MEDS: HEMOCYTE PLUS CAPSULE PO SCH (09:41)
[2020-03-02] MEDS: ASPIRIN PO SCH (09:41)
[2020-03-02] MEDS: VITAMIN B-12 PO SCH (09:41)
[2020-03-02] MEDS: TOPROL XL PO SCH (09:41)
[2020-03-02] MEDS: LACTULOSE PO SCH (09:41)
[2020-03-02] MEDS: COZAAR PO SCH (09:41)
[2020-03-02] MEDS: MIRALAX PO SCH (09:42)
[2020-03-02] MEDS: HUMULIN 70/30 SUBQ SCH ×2 (09:42→22:26)
[2020-03-02] MEDS: DIFLUCAN PO SCH (09:43)
--- NOTE | 2020-03-02 11:31 | GENERAL SURGERY PROGRESS NOTE ---
DATE: 03/02/2020 Ms. Gonzalez's left heel wound looks about the same. We will continue with Kelley herron. She will need a multi Podus boot at the time of her discharge. We will see if we can go ahead and order it. cc: Bertram Anderson MD
--- NOTE | 2020-03-02 13:26 | NEPHROLOGY PROGRESS NOTE ---
DATE: 03/02/2020 SUBJECTIVE: She is sitting up in the chair. She has not done well with eating. Still having nausea. She states her bowels have moved well with MiraLAX. OBJECTIVE: Vital Signs: Blood pressure 132/57, heart rate 84, respirations 14, afebrile. General: No acute distress. Skin: Warm and dry. Neck: Neck veins are not distended. Heart: Regular. Lungs: Equal. Abdomen: Soft. Bowel sounds are present. Extremities: There is 1+ edema. No clubbing or cyanosis. IMPRESSION: 1. Chronic kidney disease 5D. No new lab data. 2. Nausea and vomiting. 3. Constipation. Improved. 4. Hyperglycemia. We will defer that to Dr. Cole. 5. Foot wounds. Appreciate Dr. Anderson's help. cc: Agapito Thompson MD
--- NOTE | 2020-03-02 15:01 | GASTROENTEROLOGY PROGRESS NOTE ---
DATE: 03/02/2020 SUBJECTIVE: Ms. Gonzalez is a 59-year-old female sitting in the recliner. She is complaining of nausea and constipation. She has not had a bowel movement yesterday and today. OBJECTIVE: Vital Signs: Temperature 98.3 degrees, pulse 84, respirations 14, blood pressure 132/57, oxygen saturation 98% on 2 L nasal cannula. Patient's weight is 253 pounds. BMI is 46.4 kg/m. General: She is alert, oriented x3, in no acute distress. HEENT: Pale conjunctivae. No icterus. PERRL. Neck: Supple. Lungs: Mild wheezing heard in the anterior posadas. Cardiovascular: Regular rate and rhythm. Abdomen: Obese distended, tender, has dialysis catheter in the left quadrant. Suprapubic catheter in the lower quadrant. Extremities: No clubbing, no cyanosis. The patient has a wound on the left heel that was debrided. Neurological: Alert, oriented x3. LABS: WBC is 9.30, RBCs 3.06, hemoglobin 7.8, hematocrit of 27.7, platelet count is 290,000. The patient has no new chemistries. EGD FINDINGS: The had esophagitis desiccans noted in the lower third of the esophagus. Stomach showed moderate stripped gastritis in the gastric antrum. Biopsy was performed. Duodenum showed no abnormalities. IMPRESSION AND PLAN: 1. Nausea and vomiting. 2. Abdominal pain. 3. Gastritis. 4. Esophagitis. 5. Anemia of chronic disease. 6. End-stage renal disease. 7. Constipation. 8. S/p left heel debridement. 9. Urinary tract infection. PLAN: Ms. Gonzalez is a 59-year-old female with a history of end-stage renal disease. GI is following her for nausea and vomiting. We did an EGD yesterday to find out the cause of her nausea and vomiting. The patient had esophagitis and gastritis. The patient has been advised to continue PPIs twice a day. We have started her on antiemetic Zofran which is scheduled 3 times a day before every meal, as patient is still complaining of nausea. The patient is still complaining of constipation, she is on a bowel regimen, MiraLAX and Dulcolax. We will continue to monitor the patient and follow the plan of care per PCP. This plan was discussed with Dr. Cesar, please call us for any further questions or concerns. Dictated by ABIGAIL Hendrickson for Nuno Cesar MD Physician Attestation I have seen and examined the patient. I have discussed and reviewed the note by Linda HAYES and agree with findings and plan as documented. Recommend scheduled zofran and phenergan prn for breakthrough symptoms. Small frequent, low fat meals. Correct metabolic derangements and glycemic control. She may still have component of gastroparesis as her GES was only a 2hr study, which is less sensitive than 4-hr study. MTDD
[2020-03-02] MEDS: ZOFRAN PO SCH (17:25)
--- NOTE | 2020-03-02 17:45 | PROGRESS NOTE ---
DATE: 03/02/2020 INTERVAL HISTORY: No acute events overnight. SUBJECTIVE: Ms. Gonzalez feels better today. She states she was able to keep the Jell-O down and wanted me to advance her diet. She continues to have hyperglycemia. VITALS: Currently temperature 97.5 degrees, pulse 63, respiratory rate 17, blood pressure 115/48, saturating 100% on 2 L nasal cannula. PHYSICAL EXAMINATION: Morbidly obese, not in acute distress. Oral cavity is moist. Lungs: Air entry bilaterally equal. No wheeze or rhonchi or crackles. Cardiovascular: S1 and S2 normal. She has a systolic murmur affecting right second intercostal space. No rub or gallop. Abdomen: Obese, soft, nontender. She has left quadrant peritoneal dialysis catheter and suprapubic catheter with muddy urine. Extremity: No lower extremity edema. Neurological: She is alert and oriented x3. She has a left heel ulcer which is dressed at the moment. LABS: No CBC or BMP today. PROCEDURES AND IMAGING: She underwent EGD yesterday, which had detected moderate inflammation in the gastric antrum for which biopsy was taken. The results of which suggested chronic inactive gastritis. H. Pylori negative. ASSESSMENT AND PLAN: 1. Recurrent nausea and vomiting with abdominal pain. Esophagogastroduodenoscopy had esophagitis and moderate gastritis. Her symptoms are stable to better. I will advance her diet to full liquid diet. Continue her on omeprazole orally b.i.d. as well as scheduled dose of Zofran. We will try to avoid constipation by MiraLAX and lactulose. 2. Recurrent acute cystitis due to Serratia. The patient also had yeast detected on urine. She does not have fever or leukocytosis. My plan is to complete total of 7 to 10 days course of intravenous ceftriaxone. I will stop fluconazole. 3. Left heel ischemic ulcer, status post debridement by surgical team. Continue dressing with Vashe as per surgical team's recommendations. 4. Chronic kidney disease stage 5. Patient is on peritoneal dialysis as per Nephrology team's recommendation. I will keep her on home calcium acetate. 5. History of insulin-dependent diabetes mellitus type 2 with hyperglycemia. I will continue her on NPH 70/30 insulin, sliding scale insulin and I will add mealtime insulin. 6. Others. Her oral candidiasis has resolved; continue oxygen for chronic hypoxic respiratory failure and obstructive sleep apnea; Stout for chronic pain; metoprolol and losartan for essential hypertension. 7. Heparin for DVT prophylaxis next. DISPOSITION: Awaiting reasonable appetite. I am awaiting heard to have improvement in her nausea and vomiting before planning discharge. Plan of care discussed with her. All questions have been answered. cc: Timur Cole MD
[2020-03-02] MEDS: PRAVACHOL PO SCH (22:26)
[2020-03-02] MEDS: NORCO-10 PO PRN (22:40)
[2020-03-03] MEDS: DUONEB (A & A) INH SCH ×4 (00:17→11:29)
[2020-03-03] MEDS: DULCOLAX PR SCH (02:25)
[2020-03-03] MEDS: LACTULOSE PO SCH ×2 (02:25→11:14)
[2020-03-03] MEDS: MIRALAX PO SCH ×2 (02:26→11:14)
[2020-03-03] MEDS ORDERED: NS 50 ML ONE (05:58)
[2020-03-03] MEDS: ROCEPHIN 1 GM in NS 50 ML IV SCH (06:03)
[2020-03-03] MEDS: HUMULIN R SUBQ SCH ×4 (06:45→11:23)
[2020-03-03] MEDS: PRILOSEC PO SCH (06:46)
[2020-03-03 07:58] LABS: BASO# 0.04 X1000 (0.0-0.2); BASO% 0.5 % (0.0-0.8); EOS# 0.18 X1000 (0.0-0.7); EOS% 2.4 % (0.0-10.0); HEMATOCRIT 27.6 % (37.0-47.0); HEMOGLOBIN 7.9 g/dL (12.0-16.0); IMM GRAN# 0.09 X1000 (0.0-0.04); IMM GRAN% 1.2 % (0.0-0.5); LYMPH# 1.26 X1000 (1.2-3.4); LYMPH% 16.8 % (20.5-51.1); MCH 25.5 PG (27-31); MCHC 28.6 g/dL (33-37); MONO# 0.63 X1000 (0.11-0.59); MONO% 8.4 % (1.7-9.3); MPV 10.1 FL (7.4-10.4); NEUT# 5.31 X1000 (1.4-6.5); NEUT% 70.7 % (42.2-75.2); PLT 293 X1000 (130-400); RDW 13.3 % (11.5-14.5); WBC 7.51 X1000 (4.8-10.8)
[2020-03-03 08:11] VITALS: BP 110/45
[2020-03-03 08:17] LABS: CALCIUM 9.3 mg/dL (8.8-10.2); POTASSIUM 3.5 mmol/L (3.5-5.1)
[2020-03-03] MEDS: COZAAR PO SCH (08:26)
[2020-03-03] MEDS: PHOSLO PO SCH (08:26)
[2020-03-03] MEDS: ZOFRAN PO SCH ×3 (08:27→13:24)
[2020-03-03] MEDS: ASPIRIN PO SCH (08:27)
[2020-03-03] MEDS: CULTURELLE PO SCH (08:27)
[2020-03-03] MEDS: DIFLUCAN PO SCH (08:27)
[2020-03-03] MEDS: TOPROL XL PO SCH (08:27)
[2020-03-03] MEDS: VITAMIN B-12 PO SCH (08:27)
[2020-03-03] MEDS: HEMOCYTE PLUS CAPSULE PO SCH (08:27)
[2020-03-03] MEDS: HEPARIN SUBQ SCH (08:27)
[2020-03-03] MEDS: HUMULIN 70/30 SUBQ SCH (08:28)
[2020-03-03 08:36] LABS: CREATININE 11.3 mg/dL (0.5-0.9)
--- NOTE | 2020-03-03 09:24 | NEPHROLOGY PROGRESS NOTE ---
DATE: 03/03/2020 SUBJECTIVE: She feels somewhat better today. She was able to eat her oatmeal this morning. She did have some nausea but she did not vomit and she kept it down. She continues to have large bowel movements with a definite improvement there. Her urine remains dark with debris. No shortness of breath. OBJECTIVE: Vital Signs: Blood pressure 110/45, heart rate 66, respirations 18, afebrile. General: No acute distress. Skin: Warm and dry. Neck: Neck veins are not distended. Heart: Regular with a gallop. Lungs: Equal. No crackles. Abdomen: Soft and nontender. Bowel sounds are present. Extremities: Trace edema, left greater than right. Left foot is still dressed. IMPRESSION: 1. Chronic kidney disease 5D. No changes required regarding her dialysis prescription. Electrolytes/acid-base in target. 2. Anemia. Hemoglobin is below target but stable. 3. Pyuria. Related to yeast. On Diflucan. 4. Left foot decubitus ulcer. Appreciate Dr. Anderson's assistance. 5. Nausea and vomiting. May be improving. 6. Rehabilitation. Continue to work with therapy. cc: Agapito Thompson MD
--- NOTE | 2020-03-03 09:56 | GENERAL SURGERY PROGRESS NOTE ---
DATE: 03/03/2020 ASSESSMENT AND PLAN: Ms. Gonzalez's wound is getting dry so I will increase her wound bandage changes to twice a day using Vashe. cc: Bertram Anderson MD
--- NOTE | 2020-03-03 10:51 | GASTROENTEROLOGY PROGRESS NOTE ---
DATE: 03/03/2020 SUBJECTIVE: Ms. Gonzalez is a 59-year-old female sitting in the recliner. The patient mentioned feeling better today. She has denied any nausea or vomiting. She had quite a few bowel movements yesterday late in the day. She is currently on a full liquid diet and was able to tolerate her diet well. The patient denies nausea, vomiting or abdominal pain. OBJECTIVE: Vital Signs: Temperature 98.0 degrees, pulse 76, respirations 17, blood pressure 110/45, oxygen saturation 98% on 2 L nasal cannula. The patient's weight is 255 pounds. BMI is 47.6 kg/m2. General: She is morbidly obese, alert and oriented x3 female in no acute distress. HEENT: Pale conjunctivae, no icterus. PERRL. Neck: Supple. Lungs: Clear to auscultation. Cardiovascular: Regular rate and rhythm. Abdomen: Obese, nontender. Active bowel sounds heard in all 4 quadrants. Catheters: The patient has got a dialysis catheter and a suprapubic catheter. Extremities: No clubbing, no cyanosis. The patient has a wound on the left heel that has been debrided. Neurological: Alert and oriented x3. LABS: WBCs 7.51, RBCs 3.10, hemoglobin 7.9, hematocrit is 27.6, platelet count is 293. Sodium is 139, potassium 3.5, chloride 93, carbon dioxide 28, anion gap 18. BUN 18, creatinine is 37, glucose 287, calcium is 9.3. IMPRESSION AND PLAN: 1. Nausea and vomiting - improving 2. Abdominal pain - improving 3. Gastritis. 4. Esophagitis. 5. Anemia. 6. End-stage renal disease. 7. Constipation - improving 8. Urinary tract infection. PLAN: Ms. Gonzalez is a 59-year-old female with a history of end-stage renal disease. Gastroenterology is following her for nausea and vomiting. Today, the patient has denied any nausea, vomiting. Her constipation is also getting better. She had multiple bowel movements yesterday. The patient has scheduled antiemetic Zofran before every meal. She is on antibiotic Rocephin. We will continue her PPIs twice a day. She is on MiraLAX, Dulcolax and lactulose for her bowel movements. For anemia, she is receiving multivitamin with iron. Patient has discharge orders to go home today. We will follow her up in 4 week as an outpatient. This plan was discussed with Dr. Piper. Please call us for any further questions or concerns. Dictated by ABIGAIL Hendrickson for Chase Piper MD cc: Chase Piper MD I have seen and examined the patient myself and I agree with the above plan of care. Will sign off at this time. Please call us with any further questions or concerns. LANA
--- NOTE | 2020-03-03 12:21 | EKG Report ---
Test Performed on : 03/03/2020 12:11:34 PM Test Reason : Follow up EKG for QTc prolongation on Zofran. Blood Pressure : / mmHG Vent. Rate : 070 BPM Atrial Rate : 070 BPM P-R Int : 166 ms QRS Dur : 098 ms QT Int : 412 ms P-R-T Axes : 025 003 -02 degrees QTc Int : 444 ms Normal sinus rhythm. Cannot rule out Inferior infarct , age undetermined Abnormal ECG When compared with ECG of 22-FEB-2020 19:48, (Unconfirmed) fusion complexes are no longer present premature ventricular complexes. are no longer present Minimal criteria for Inferior infarct are now present Confirmed by Ana MOORE, Darrion Morgan ([id number]) on 03/03/2020 5:31:36 PM
--- NOTE | 2020-03-03 13:30 | DISCHARGE SUMMARY ---
ADMISSION DATE: 02/22/2020 DISCHARGE DATE: 03/03/2020 DISCHARGE DISPOSITION: Home with home care. DISCHARGE CONDITION: Hemodynamically stable. She has been able to tolerate a full liquid diet well without any nausea or vomiting. She was instructed to continue liquid diet for 2 days, and advance as tolerated. She was also instructed to get a repeat EKG done in 7 days to make sure her QT was not prolonging on ondansetron. She was advised to work on weight reduction and regular physical activity, diabetes control, have outpatient Gastroenterology and Nephrology, as well as Wound Care followup. DISCHARGE DIAGNOSES: 1. Recurrent nausea, vomiting, and abdominal pain. 2. Esophagitis and moderate gastritis. 3. Recurrent acute cystitis due to Serratia associated with suprapubic catheter, as well as funguria, status post antibiotics and antifungals. 4. Left heel ischemic ulcer, status post debridement by surgical team. 5. Chronic kidney disease stage 5, on peritoneal dialysis. 6. History of insulin-dependent diabetes mellitus type 2 with hyperglycemia. 7. Oral candidiasis. OTHER DIAGNOSES: 1. History of chronic hypoxic respiratory failure. 2. History of obstructive sleep apnea. 3. History of chronic pain. 4. Essential hypertension. 5. History of insulin-dependent diabetes mellitus. DISCHARGE MEDICATIONS: 1. Pravastatin 40 mg at nighttime. 2. Vitamin B12, 500 mcg daily. 3. Losartan 50 mg daily. 4. Lasix 40 mg b.i.d. 5. Insulin 70/30, 110 units at nighttime and 137 units daily. 6. Metoprolol 200 mg daily. 7. Aspirin 325 mg daily. 8. Docusate 100 mg b.i.d. 9. Multivitamin 1 tablet daily. 10. MiraLAX 17 grams b.i.d., 30 powder has been prescribed, to have a 1 to 2 soft bowel movements in 24 hours. The patient was instructed to hold it if she had diarrhea. 11. Omeprazole 40 mg b.i.d., 60 capsules have been prescribed. 12. Calcium acetate 667 mg t.i.d. with meals, 90 tablets have been prescribed. 13. Zofran 4 mg t.i.d., 30 tablets have been prescribed. 14. Her fluconazole was stopped at the time of discharge as it could potentially interact with Zofran, as well as her funguria was thought to be asymptomatic since she did not have fever or leukocytosis. PHYSICAL EXAMINATION: Vital Signs: Temperature 98 degrees, pulse 76, respiratory rate 17, blood pressure 110/45, saturating 100% 2 L nasal cannula. General: Ms. Gonzalez was morbidly obese, not in any acute distress. HEENT: Oral cavity is moist. Lungs: Air entry bilaterally equal. No wheeze or rhonchi. Heart: S1, S2 normal. Systolic murmur affecting right intercostal space. No rub or gallop. Abdomen: Obese, soft, nontender. She had left quadrant peritoneal dialysis catheter, as well as suprapubic catheter with clear urine. The sites were noninflamed and nontender. Extremities: She did not have any lower extremity edema. She has about a 3 x 3 cm round ulcer on the left heel, which was getting dressings from [facility]. Neurologic: She is alert and oriented x3. LABORATORY DATA: At the time of discharge, WBC 7.5, hemoglobin 7.9, platelets 293,000. BUN 37, creatinine 11.3, blood glucose 287. Peritoneal drain analysis at the time of discharge had WBC of 52. MICROBIOLOGY: Urine culture was growing Serratia, which was sensitive to cefazolin. One of the two blood cultures was growing diphtheroids, which was thought to be a contaminant. Repeat urine culture on 02/28/2020 was growing yeast. She is status post 10 days of intravenous antibiotics. IMAGING DURING HOSPITAL ADMISSION: 1. Abdomen and pelvis CT on 02/22/2020 had [id number] amount of abdomen and pelvic fluid, hysterectomy, and 2.2 cm of left renal cyst. 2. Gastric emptying study on 02/25/2020 did not have any gastric delay. 3. Chest CT on 02/27/2020 was negative for pneumonia. It had low lung volumes. 4. Abdominal x-ray on 02/29/2020 had moderate constipation. CONSULTATIONS DURING HOSPITAL ADMISSION: 1. Gastroenterology, Dr. Piper 2. Dr. Thompson from Nephrology. 3. Dr. Anderson for left heel wound. HOSPITAL COURSE SUMMARY: Ms. Gonzalez is a 59-year-old, lady, who presented on 02/22/2020 with chief complaint of recurrent nausea, vomiting, inability to tolerate oral intake, and abdominal pain, which was going on since several weeks. In the emergency room, she was found to have temperature of 98.4 degrees, pulse of 65, respiratory rate of 18, blood pressure of 106/60, and she was saturating 96% on 2 L nasal cannula. Her initial lab had leukocytosis of 11,000, hemoglobin of 9.4. Her ABG had a PO2 of 92 on 2 L nasal cannula. She was detected to have BUN of 56 and creatinine of 12.6. Initially, it was thought that she had peritoneal dialysis catheter-associated peritonitis, so she was admitted inside the hospital and was started on broad- spectrum intravenous antibiotics for suspected peritonitis, as well as suprapubic catheter- associated UTI. The peritoneal fluid analysis was performed several times during hospital admission. Initially, it had WBC of 55. Later on, it had increased to 280, and later on at the time of discharge, the WBCs were 52. However, the culture did not grow any bacteria. Some adjustments were made in her peritoneal dialysis schedule, which helped bring her BUN down from 56 on presentation to 37 at the time of discharge. By the time of discharge, she has completed 10 days of intravenous antibiotics for Serratia UTI. GI team was involved for recurrent nausea and vomiting, and she underwent EGD on 03/01/2020, which had detected moderate gastritis in the gastric antrum, for which biopsy was taken. She was advised to continue PPI orally b.i.d. Local wound care was suggested by surgical team for her left heel wound. During the later part of the hospital course, with antacid and scheduled Zofran, the patient did not have any more nausea or vomiting. Her BUN had also gone down, and her constipation had resolved. It was thought that her nausea and vomiting were multifactorial because of these etiologies, which was improving, so it was decided to discharge her on soft diet, and she was advised to advance this as tolerated. TIME SPENT: 25 minutes were spent discharging the patient. Plan of care was extensively discussed with her. She was allowed to ask questions. All of her questions were answered. cc: Timur Cole MD [facility]
== END 2020-03-03 15:32 | disposition home health service (06) | DRG 698 ==
LOC: P.ED 16:25 → SUATTDRO 19:53 → 1N 19:53 → 3N 02-26 15:14
PROVIDERS: ATTEND Internal Medicine